=== PATIENT | female | born 1960 | race Caucasian/White ===

== ENCOUNTER 2017-11-30 14:05 | Emergency (ER) | payer OTHER ==
--- NOTE | 2017-11-30 15:57 | RAD REPORT ---
EXAM DESCRIPTION: CT - Soft Tissue Neck W/Contr - 11/30/2017 3:38 pm CLINICAL HISTORY: Recent tooth extraction, right-sided pain and swelling, suspected abscess, fever a nd chills TECHNIQUE: During dynamic enhancement using 100 milliliters nonionic IV contrast, axial 5 millimeter thick images of the neck were obtained. All CT scans are performed using dose optimization technique as appropriate and may include automated exposure control or mA/KV adjustment according to patient size. FINDINGS: In the right submandibular region and lateral to the mandible there is a 4.[address] abscess. Edema and stranding present in the surrounding fatty tissues. The right submandibular gl and is not clearly distinguishable. Patient has a very small or absent left submandibular gland. Bila teral parotid glands and thyroid gland tissue unremarkable. No mandible bone destructive process seen. Condyles are normally positioned. There are 2 in the cavit ies on the right. It is uncertain which I represents the most recent extraction. No bone destruction to suspect osteomyelitis. There is a congestion and edema pattern along the inner table of the mandible but no additional drain able fluid collections seen. No pharyngeal mass. No tonsillar or tongue base abnormality. Vocal cords are unremarkable. IMPRESSION: A 4.5 x 3.0 centimeter sized abscess is present in the region of the right submandibular gland. This is present at the inferior and lateral margin of the mandible. No acute or destructive bone process of the mandible.
[2017-11-30 16:02] LABS: Absolute Lymphocytes (CBC) 1.3 K/uL (0.7-4.9); Absolute Neutrophil 8.3 K/uL (1.8-8.0); Basophils % 0.6 % (0-1.3); Eosinophils % 0.8 % (0-4.4); Hematocrit 42.6 % (36.0-45.0); Lymphocytes % 11.7 % (15.3-44.8); MCH 29.6 pg (27.0-35.0); MCV 88.2 fL (80-100); Monocytes % 9.4 % (3.3-12.3); RBC Red Blood Cell Count 4.83 M/uL (3.86-4.86)
[2017-11-30 16:06] LABS: Potassium 3.7 mmol/L (3.5-5.1)
[2017-11-30] MEDS ORDERED: FENTANYL CITR 100 MCG/2 ML ONE (16:08)
[2017-11-30] MEDS ORDERED: NA CHLORIDE 0.9% 1,000 ML ONE (16:09)
[2017-11-30] MEDS ORDERED: VANCOMYCIN 1 GM/250 ML BAG ONE (16:09)
[2017-11-30] MEDS ORDERED: ONDANSETRON 4 MG/2 ML VIAL ONE (16:09)
[2017-11-30] MEDS ORDERED: PIPER/TAZO/NS 3.375gm 3.375 GM/100 ML BAG ONE (16:09)
--- NOTE | 2017-11-30 16:29 | EDPHYS ---
Physician Documentation [facility] Name: Terrance Lange Age: 57 yrs Sex: Female : 1960 Arrival Date: 11/30/2017 Time: 14:08 Bed 25 Private MD: None, None ED Physician Jamey Lewis HPI: 11/30 15:18 This 57 yrs old Female presents to ER via Ambulatory with complaints of jr8 Abscess. 15:18 The patient presents with an abscess of the face. Description: The affected area is jr8 moderate sized, well demarcated, erythematous, raised, tense, warm. Onset: The symptoms/episode began/occurred gradually, 1 week(s) ago. Possible cause(s): Recent dental infection. Associated signs and symptoms: Pertinent positives: fever. Severity of symptoms: At their worst the symptoms were moderate, in the emergency department the symptoms are unchanged. The patient has not experienced similar symptoms in the past. The patient has not recently seen a physician. came to ED for worsening of infection/abscess . Historical: - Allergies: 14:13 No Known Allergies; hj - Home Meds: 14:13 Nexium Oral [Active]; hj 15:14 tramadol 50 mg Oral tab 1 tab every 4 hours [Active]; tl3 - PMHx: 14:13 acid reflux; hj - PSHx: 14:13 eye; Hysterectomy; hj - Immunization history:: Adult Immunizations up to date, Last tetanus immunization: unknown. - Social history:: Smoking status: Patient/guardian denies using tobacco, Patient uses alcohol, occasionally. - Ebola Screening: : Patient negative for fever greater than or equal to 101.5 degrees Fahrenheit, and additional compatible Ebola Virus Disease symptoms Patient denies exposure to infectious person Patient denies travel to an Ebola-affected area in the 21 days before illness onset. ROS: 15:18 Eyes: Negative for injury, pain, redness, and discharge, ENT: Negative for injury, jr8 pain, and discharge, Neck: Negative for injury, pain, and swelling, Cardiovascular: Negative for chest pain, palpitations, and edema, Respiratory: Negative for shortness of breath, cough, wheezing, and pleuritic chest pain, Abdomen/GI: Negative for abdominal pain, nausea, vomiting, diarrhea, and constipation, Back: Negative for injury and pain, MS/Extremity: Negative for injury and deformity, Neuro: Negative for headache, weakness, numbness, tingling, and seizure. 15:18 Skin: Positive for abscess, of the right jaw. Exam: 15:18 Eyes: Pupils equal round and reactive to light, extra-ocular motions intact. Lids and jr8 lashes normal. Conjunctiva and sclera are non-icteric and not injected. Cornea within normal limits. Periorbital areas with no swelling, redness, or edema. ENT: Nares patent. No nasal discharge, no septal abnormalities noted. Tympanic membranes are normal and external auditory canals are clear. Oropharynx with no redness, swelling, or masses, exudates, or evidence of obstruction, uvula midline. Mucous membranes moist. Neck: Trachea midline, no thyromegaly or masses palpated, and no cervical lymphadenopathy. Supple, full range of motion without nuchal rigidity, or vertebral point tenderness. No Meningismus. Cardiovascular: Regular rate and rhythm with a normal S1 and S2. No gallops, murmurs, or rubs. Normal PMI, no JVD. No pulse deficits. Respiratory: Lungs have equal breath sounds bilaterally, clear to auscultation and percussion. No rales, rhonchi or wheezes noted. No increased work of breathing, no retractions or nasal flaring. Abdomen/GI: Soft, non-tender, with normal bowel sounds. No distension or tympany. No guarding or rebound. No evidence of tenderness throughout. Back: No spinal tenderness. No costovertebral tenderness. Full range of motion. MS/ Extremity: Pulses equal, no cyanosis. Neurovascular intact. Full, normal range of motion. Neuro: Awake and alert, GCS 15, oriented to person, place, time, and situation. Cranial nerves II-XII grossly intact. Motor strength 5/5 in all extremities. Sensory grossly intact. Cerebellar exam normal. Normal gait. 15:18 Head/face: Noted is Large erythematic, swollen, indurated, area approximately 7.5 cm in diameter noted to right jaw region of face. No draining present . Vital Signs: 14:14 BP 129 / 87; Pulse 96; Resp 18; Temp 98.6(O); Pulse Ox 95% on R/A; Weight 62.6 kg; hj Height 5 ft. 0 in. (152.40 cm); Pain 10/10; 15:56 BP 129 / 79; Pulse 74; Resp 18; Pulse Ox 98% ; tl3 16:24 BP 113 / 81; Pulse 88; Resp 18; Pulse Ox 99% ; tl3 16:50 Pain 8/10; tl3 17:53 BP 120 / 81; Pulse 93; Resp 18; Pulse Ox 99% on R/A; tl3 14:14 Body Mass Index 26.95 (62.60 kg, 152.40 cm) hj MDM: 15:05 Patient medically screened. jr8 16:12 Data reviewed: vital signs, nurses notes, lab test result(s), radiologic studies, CT jr8 scan. Data interpreted: Pulse oximetry: on room air is 98 %. Interpretation: normal. Counseling: I had a detailed discussion with the patient and/or guardian regarding: the historical points, exam findings, and any diagnostic results supporting the discharge/admit diagnosis, lab results, radiology results, the need to transfer to another facility, for higher level of care, [facility] does not immediately have the required specialist. ED course: Dr. Rendon at [facility] after discussing case with him stated that this is the other dentists problem and that this is not his problem. Was very rude and argumentative on the phone. He kept pushing that this dentist down here has his own OMFS. Explained to him that there is no OMFS or ENT available down here and that this patient needs inpatient IV antibiotics and I\T\D. He hung up at that time without finishing discussion. . 16:27 ED course: Dr. Dallas at [facility] accepted patient from ER to ER for further evaluation .[facility] 11/30 15:14 Order name: CBC with Diff; Complete Time: 16:15 jr8 11/30 15:14 Order name: Basic Metabolic Panel; Complete Time: 16:07 8 11/30 15:14 Order name: Blood Culture Adult (2) [facility] 11/30 15:35 Order name: Soft Tissue Neck W/Contr; Complete Time: 15:58 EDMS 11/30 15:14 Order name: IV; Complete Time: 16:23 Administered Medications: 16:22 Drug: fentaNYL (PF) 50 mcg Route: IVP; Infused Over: 2 mins; Site: left forearm; tl3 16:50 Follow up: Pain 8/10 Adult; Response: Pain is decreased tl3 16:22 Drug: Zofran 4 mg Route: IVP; Infused Over: 2 mins; Site: left forearm; tl3 16:50 Follow up: Response: No adverse reaction tl3 16:22 Drug: NS 0.9% 1000 ml Route: IV; Rate: 125 ml/hr; Site: left forearm; Delivery: Primary tl3 tubing; 17:52 Follow up: IV Status: Infusion continued upon transfer tl3 16:22 Drug: vancoMYCIN 1 grams Route: IVPB; Infused Over: 2 hrs; Site: left forearm; tl3 Delivery: Primary tubing; 17:52 Follow up: IV Status: Infusion continued upon transfer tl3 17:55 Follow up: IV Status: Infusion continued upon transfer; IV Intake: 200ml tl3 17:51 Drug: Zosyn 3.375 grams Route: IVPB; Infused Over: 60 mins; Site: left forearm; tl3 Delivery: Primary tubing; 17:52 Follow up: Response: Medication administered at discharge. tl3 17:51 Drug: fentaNYL (PF) 50 mcg Route: IVP; Site: left forearm; tl3 17:51 Follow up: Response: Medication administered at discharge. tl3 Disposition: 11/30/17 16:28 Transfer ordered to [facility]. Diagnosis is Submandibular Abscess (Failed outpatient therapy). - Reason for transfer: Higher level of care. - Accepting physician is Dr. Dallas. - Condition is Stable. - Problem is new. - Symptoms have worsened. Addendum: 12/07/2017 08:01 Co-signature as Attending Physician, Jamey Lewis MD I agree with the assessment and k dr plan of care. Signatures: Dispatcher [employer] [facility] Jamey Lewis MD MD [facility] Jaquan Manzanares PA PA jr8 aBshir Corrales RN RN hj Lowrey, Tammy, RN RN tl3 Corrections: (The following items were deleted from the chart) 11/30 15:35 15:14 Facial Bones W/ Con \T\ MPR+CT.RAD.BRZ ordered. [facility] 17:55 16:28 11/30/2017 16:28 Transfer ordered to [facility]. tl3 Diagnosis is Submandibular Abscess (Failed outpatient therapy). Reason for transfer: Higher level of care. Accepting physician is Dr. Dallas. Condition is Stable. Problem is new. Symptoms have worsened. jr8
--- NOTE | 2017-11-30 16:29 | ER ---
Nurse's Notes [facility] Name: Terrance Lange Age: 57 yrs Sex: Female : 1960 Arrival Date: 11/30/2017 Time: 14:08 Bed 25 Private MD: None, None Diagnosis: Submandibular Abscess (Failed outpatient therapy) Presentation: 11/30 14:10 Presenting complaint: Patient states: my dentist pulled the tooth last Monday, right hj after my tooth pulled the abscess on my R jaw is getting bigger and its getting worse; reports fever and chills; reports nausea and vomiting;. Transition of care: patient was not received from another setting of care. Onset of symptoms was November 30, 2017. Risk Assessment: Do you want to hurt yourself or someone else? Patient reports no desire to harm self or others. Initial Sepsis Screen: Does the patient meet any 2 criteria? No. Patient's initial sepsis screen is negative. Does the patient have a suspected source of infection? No. Patient's initial sepsis screen is negative. Care prior to arrival: None. 14:10 Method Of Arrival: Ambulatory 14:10 Acuity: VALERY 3 hj Triage Assessment: 14:13 General: Appears in no apparent distress. uncomfortable, Behavior is calm, cooperative, hj appropriate for age. Pain: Complains of pain in right jaw Pain currently is 10 out of 10 on a pain scale. Historical: - Allergies: 14:13 No Known Allergies; hj - Home Meds: 14:13 Nexium Oral [Active]; hj 15:14 tramadol 50 mg Oral tab 1 tab every 4 hours [Active]; tl3 - PMHx: 14:13 acid reflux; hj - PSHx: 14:13 eye; Hysterectomy; hj - Immunization history:: Adult Immunizations up to date, Last tetanus immunization: unknown. - Social history:: Smoking status: Patient/guardian denies using tobacco, Patient uses alcohol, occasionally. - Ebola Screening: : Patient negative for fever greater than or equal to 101.5 degrees Fahrenheit, and additional compatible Ebola Virus Disease symptoms Patient denies exposure to infectious person Patient denies travel to an Ebola-affected area in the 21 days before illness onset. Screenin:13 Abuse screen: Denies threats or abuse. Denies injuries from another. Nutritional hj screening: No deficits noted. Tuberculosis screening: No symptoms or risk factors identified. Fall Risk None identified. Assessment: 14:53 General: Appears distressed, uncomfortable, slender, well groomed, well developed, well tl3 nourished, Behavior is calm, cooperative, appropriate for age. Pain: Complains of pain in face and right jaw Pain currently is 10 out of 10 on a pain scale. Neuro: Level of Consciousness is awake, alert, obeys commands, Oriented to person, place, time, situation, Appropriate for age. Cardiovascular: Patient's skin is warm and dry. Respiratory: Airway is patent Respiratory effort is even, unlabored, Respiratory pattern is regular, symmetrical. GI: No signs and/or symptoms were reported involving the gastrointestinal system. : No signs and/or symptoms were reported regarding the genitourinary system. EENT: Oral mucosa is moist. pt had had facial swelling from what was thought to be a tooth abscess, two teeth were extracted on Monday, swelling continues, has finished Bactrim and is currently on Clindamycin area is red, hot and hard. 15:56 Reassessment: Patient appears in no apparent distress at this time. No changes from tl3 previously documented assessment. Patient and/or family updated on plan of care and expected duration. Pain level reassessed. Patient is alert, oriented x 3, equal unlabored respirations, skin warm/dry/pink. pt returned from CT. 16:48 Reassessment: report called to ER spoke with Daylin Ramirez RN. tl3 17:53 Reassessment: Patient appears in no apparent distress at this time. No changes from tl3 previously documented assessment. Patient and/or family updated on plan of care and expected duration. Pain level reassessed. Patient is alert, oriented x 3, equal unlabored respirations, skin warm/dry/pink. EMS here for transfer. Vital Signs: 14:14 BP 129 / 87; Pulse 96; Resp 18; Temp 98.6(O); Pulse Ox 95% on R/A; Weight 62.6 kg; hj Height 5 ft. 0 in. (152.40 cm); Pain 10/10; 15:56 BP 129 / 79; Pulse 74; Resp 18; Pulse Ox 98% ; tl3 16:24 BP 113 / 81; Pulse 88; Resp 18; Pulse Ox 99% ; tl3 16:50 Pain 8/10; tl3 17:53 BP 120 / 81; Pulse 93; Resp 18; Pulse Ox 99% on R/A; tl3 14:14 Body Mass Index 26.95 (62.60 kg, 152.40 cm) hj ED Course: 14:08 Patient arrived in ED. mr 14:08 None, None is Private Physician. mr 14:12 Triage completed. hj 14:13 Arm band placed on right wrist. hj 14:13 Patient has correct armband on for positive identification. Placed in gown. Bed in low hj position. Call light in reach. Side rails up X 1. 14:38 Jaquan Manzanares PA is PHCP. jr8 14:38 Jamey Lewis MD is Attending Physician. jr8 14:43 Raven Polanco, DENY is Primary Nurse. tl3 14:53 No provider procedures requiring assistance completed. Inserted saline lock: 20 gauge tl3 in right forearm, using aseptic technique. Blood collected. 15:[address] via stretcher. nj 15:38 CT completed. Patient tolerated procedure well. Patient moved back from CT. nj 15:38 Soft Tissue Neck W/Contr In Process Unspecified. EDMS 15:43 initiated transfer with Isabella at the [facility] transfer center. eb 15:58 connected the oral surgeon from [facility] with Jaquan ULRICH for patient transfer consultation. eb 15:59 First set of blood cultures drawn from L forearm Second set of blood cultures drawn LAC.tl3 16:00 [facility] oral surgeon Dr. Rendon declined transfer. Dr. Rendon says " this is an out eb patient problem". 16:07 initiated transfer with Claire at the [facility]. eb 16:46 \\[id number]\\[id number] Dr. Dallas accepted the patient/ \\T\\ [id number] administrative approval given by Claire Norman RN. Patient is to go to the ED. Report is to be called to [phone]. 17:53 Patient transferred, IV remains in place. tl3 Administered Medications: 16:22 Drug: fentaNYL (PF) 50 mcg Route: IVP; Infused Over: 2 mins; Site: left forearm; tl3 16:50 Follow up: Pain 8/10 Adult; Response: Pain is decreased tl3 16:22 Drug: Zofran 4 mg Route: IVP; Infused Over: 2 mins; Site: left forearm; tl3 16:50 Follow up: Response: No adverse reaction tl3 16:22 Drug: NS 0.9% 1000 ml Route: IV; Rate: 125 ml/hr; Site: left forearm; Delivery: Primary tl3 tubing; 17:52 Follow up: IV Status: Infusion continued upon transfer tl3 16:22 Drug: vancoMYCIN 1 grams Route: IVPB; Infused Over: 2 hrs; Site: left forearm; tl3 Delivery: Primary tubing; 17:52 Follow up: IV Status: Infusion continued upon transfer tl3 17:55 Follow up: IV Status: Infusion continued upon transfer; IV Intake: 200ml tl3 17:51 Drug: Zosyn 3.375 grams Route: IVPB; Infused Over: 60 mins; Site: left forearm; tl3 Delivery: Primary tubing; 17:52 Follow up: Response: Medication administered at discharge. tl3 17:51 Drug: fentaNYL (PF) 50 mcg Route: IVP; Site: left forearm; tl3 17:51 Follow up: Response: Medication administered at discharge. tl3 Intake: 17:55 IV: 200ml; Total: 200ml. tl3 Outcome: 16:28 ER care complete, transfer ordered by MD. monreal 17:55 Patient left the ED. tl3 Signatures: Dispatcher [employer] EDMS Carli Phipps Josh, PA PA jr8 Bashir Corrales, RN Andreas Lai Tammy, RN RN tl3 Agatha Turner Corrections: (The following items were deleted from the chart) 14:15 14:14 Pulse 96bpm; Resp 18bpm; Pulse Ox 95% RA; Temp 98.6F Oral; 62.6 kg; Height 5 ft. hj 0 in.; BMI: 26.9; Pain 10/10; hj
== END 2017-11-30 17:55 | disposition short-term general hospital (02) ==
LOC: ER 14:05
DX: L02.01 Cutaneous abscess of face (principal)
CPT/HCPCS: 36415; 70491; 80048; 85025; 87040; 96361; 96365; 96375; 99284; J2405; J2543; J3010; J3370; J7030

== ENCOUNTER 2023-10-06 19:54 | Emergency (ER) | payer OTHER ==
--- OUTSIDE RECORDS SUMMARY | 2023-10-06 20:01 | XMS REPORT | Continuity of Care Document ---
Author Name Unknown Address [address] [facility] [address] [place] [address] [facility] thconnect Address [address] [facility] [address] [place] [address] Care Team Providers Care Branch Controller Name Role Phone Maliha Eid Primary Care Physician [phone] Alivia Cao Attending Clinician Unavailable CHARISSE BRYANT Attending Clinician Unavailable Poppy_Lorenas Attending Clinician Unavailable TINO Attending Clinician Unavailable WATERS_S Attending Clinician Unavailable SCHAUBRODAYNE_L Attending Clinician Unavailable IHDE_G Attending Clinician Unavailable Yessy Henry Attending Clinician [phone] Poppy_Papmargaret Admitting Clinician Unavailable TINO Admitting Clinician Unavailable WATERS_S Admitting Clinician Unavailable SCHAUBRODAYNE_L Admitting Clinician Unavailable IHDE_G Admitting Clinician Unavailable Payers Payer Name Policy Type Policy Number Effective Date Expirati on Date Source [employer] [id number] 2012 00:00:00 [employer] Steffany CHAVEZ 2 [id number] 2012 00:00:00 [facility] [place]MEDICAID REPLACEMENT - HMO) [id number] 2012 00:00:00 [employer] (DARS) [id number] Problems Condition Name Condition Details Condition Category Status Onset Date Resolution Date Last Treatment Date Treating Clinician Comments Source 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, 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, 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 Specimen Problem Active 2020-05 00:00: 00 [facility] Hypertrigl yceridemia Hypertrigl yceridemia Problem Active 2019-05 00:00: 00 [facility] Legal blindness Legal Blindness Problem Active 2019-05 00:00: 00 [facility] Gastroesop hageal reflux disease Gastroesop hageal Reflux Disease Problem Active 2019-05 00:00: 00 [facility] Gastroesop hageal reflux disease Gastroesop hageal Reflux Disease Problem Active -17 00:00: 00 [facility] Hypothyroi dism Hypothyroi dism Problem Active - 00:00: 00 [facility] Urinary incontinen ce Urinary Incontinen ce Problem Active - 00:00: 00 [facility] Family history of cancer of colon Family History of Cancer of Colon Problem Active - 00:00: 00 [facility] Urge incontinen ce of urine Urge Incontinen ce of Urine Problem Active 2017-05 00:00: 00 [facility] Hormone replacemen t therapy Hormone Replacemen t Therapy Problem Active 2017-05 00:00: 00 [facility] 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 Atrophic vaginitis Atrophic Vaginitis Problem Active 11-08 00:00: 00 [facility] [id number] Glaucoma of right eye, unspecifie d glaucoma type Problem [facility] [id number] Age-relate d osteoporos is without current pathologic al fracture Problem [facility] [id number] Essential (primary) hypertensi on Problem [facility] [id number] Psoriasis Problem [facility] [id number] Hot flashes due to menopause Problem [facility] [id number] Hypothyroi dism, unspecifie d type Problem [facility] [id number] Gastroesop hageal reflux disease without esophagiti s Problem [facility] [id number] Mixed hyperlipid emia Problem [facility] Decreased hearing Decreased hearing Problem [facility] Social History Social Habit Start Date Stop Date Quantity Comments Source History of Tobacco Use [facility] Sex Assigned At [facility] Smoking Status Start Date Stop Date Source Never Smoker [facility] Medications Ordered Medication Name Filled Medication Name Start Date Stop Date Current Medication? Ordering Clinician Indication Dosage Frequency Signature (SIG) Comments Components Source Ciprofloxac in-dexAMETH asone 0.3-0.1 % Ciprofloxac in-dexAMETH asone 0.3-0.1 % - 00:00: 00 No BID Ciprofloxa madeline-dexAME THasone 0.3-0.1 % Amoxicillin -Pot Clavulanate 875-125 MG Amoxicillin -Pot Clavulanate 875-125 MG 08-06 00:00: 00 No 1{table t} BID Amoxicilli n-Pot Clavulanat e 875-125 MG Amoxicillin -Pot Clavulanate 875-125 MG Amoxicillin -Pot Clavulanate 875-125 MG 2024-0 4- 00:00: 00 No 1{table t} BID Amoxicilli n-Pot Clavulanat e 875-125 MG metFORMIN HCl 500 MG metFORMIN HCl 500 MG 4-0 -19 00:00: 00 No 1{table t_with_ a_meal} BID metFORMIN HCl 500 MG metFORMIN HCl 500 MG metFORMIN HCl 500 MG 4-0 3-19 00:00: 00 No 1{table t_with_ a_meal} BID metFORMIN HCl 500 MG metFORMIN HCl 500 MG metFORMIN HCl 500 MG 4-0 -19 00:00: 00 No 1{table t_with_ a_meal} BID metFORMIN HCl 500 MG metFORMIN HCl 500 MG metFORMIN HCl 500 MG 4-0 - 00:00: 00 No 1{table t_with_ a_meal} BID metFORMIN HCl 500 MG metFORMIN HCl 500 MG metFORMIN HCl 500 MG 2023-0 -19 00:00: 00 No 1{table t_with_ a_meal} BID metFORMIN HCl 500 MG metFORMIN HCl 500 MG metFORMIN HCl 500 MG 2023-0 - 00:00: 00 No 1{table t_with_ a_meal} BID metFORMIN HCl 500 MG Rosuvastati n Calcium 5 MG Rosuvastati n Calcium 5 MG 2022-1 218 00:00: 00 No 1{table t} QD Rosuvastat in Calcium 5 MG Rosuvastati n Calcium 5 MG Rosuvastati n Calcium 5 MG 2022-1 2-18 00:00: 00 No 1{table t} QD Rosuvastat in Calcium 5 MG Rosuvastati n Calcium 5 MG Rosuvastati n Calcium 5 MG 2022-1 2-18 00:00: 00 No 1{table t} QD Rosuvastat in Calcium 5 MG Rosuvastati n Calcium 5 MG Rosuvastati n Calcium 5 MG 2022-1 2-18 00:00: 00 No 1{table t} QD Rosuvastat in Calcium 5 MG Rosuvastati n Calcium 5 MG Rosuvastati n Calcium 5 MG 3-1 2-18 00:00: 00 No 1{table t} QD Rosuvastat in Calcium 5 MG Rosuvastati n Calcium 5 MG Rosuvastati n Calcium 5 MG 2022-1 2-18 00:00: 00 No 1{table t} QD Rosuvastat in Calcium 5 MG Rosuvastati n Calcium 5 MG Rosuvastati n Calcium 5 MG 2022-05-18 00:00: 00 No 1{table t} QD Rosuvastat in Calcium 5 MG Kenalog (Triamcinol one) Kenalog (Triamcinol one) 2022-0 4- 00:00: 00 No 40mg [facility] Kenalog (Triamcinol one) Kenalog (Triamcinol one) 0 - 00:00: 00 No 40mg [facility] Kenalog (Triamcinol one) Kenalog (Triamcinol one) 0 - 00:00: 00 No 40mg [facility] Kenalog (Triamcinol one) Kenalog (Triamcinol one) 0 - 00:00: 00 No 40mg [facility] Kenalog (Triamcinol one) Kenalog (Triamcinol one) 0 - 00:00: 00 No 40mg [facility] Kenalog (Triamcinol one) Kenalog (Triamcinol one) 0 - 00:00: 00 No 40mg [facility] Kenalog (Triamcinol one) Kenalog (Triamcinol one) 0 - 00:00: 00 No 40mg [facility] Kenalog (Triamcinol one) Kenalog (Triamcinol one) 0 - 00:00: 00 No 40mg [facility] Kenalog (Triamcinol one) Kenalog (Triamcinol one) 0 - 00:00: 00 No 40mg [facility] Kenalog (Triamcinol one) Kenalog (Triamcinol one) 2022-0 4- 00:00: 00 No 40mg [facility] Kenalog (Triamcinol one) Kenalog (Triamcinol one) 2023-0 4-19 00:00: 00 No 40mg [facility] Kenalog (Triamcinol one) Kenalog (Triamcinol one) 2022-0 4-19 00:00: 00 No 40mg [facility] Kenalog (Triamcinol one) Kenalog (Triamcinol one) 0 4-19 00:00: 00 No 40mg [facility] Kenalog (Triamcinol one) Kenalog (Triamcinol one) 0 4-19 00:00: 00 No 40mg [facility] Kenalog (Triamcinol one) Kenalog (Triamcinol one) 0 4-19 00:00: 00 No 40mg [facility] Kenalog (Triamcinol one) Kenalog (Triamcinol one) 2022-0 4-19 00:00: [address] [facility] Kenalog (Triamcinol one) Kenalog (Triamcinol one) 0 4-19 00:00: 00 No 40[facility] Kenalog (Triamcinol one) Kenalog (Triamcinol one) 0 4-19 00:00: 00 No 40mg [facility] Alendronate Sodium 70 MG Alendronate Sodium 70 MG 2022-0 2-16 00:00: 00 No Alendronat e Sodium 70 MG Alendronate Sodium 70 MG Alendronate Sodium 70 MG 2022-0 2-16 00:00: 00 No Alendronat e Sodium 70 MG Alendronate Sodium 70 MG Alendronate Sodium 70 MG 2022-0 2-16 00:00: 00 No Alendronat e Sodium 70 MG Alendronate Sodium 70 MG Alendronate Sodium 70 MG 2022-0 2-16 00:00: 00 No Alendronat e Sodium 70 MG Alendronate Sodium 70 MG Alendronate Sodium 70 MG 2022-0 2-16 00:00: 00 No Alendronat e Sodium 70 MG Venlafaxine HCl ER 37.5 MG Venlafaxine HCl ER 37.5 MG 2022-0 9-19 00:00: 00 No 1{capsu le_with _food} QD Venlafaxin e HCl ER 37.5 MG Venlafaxine HCl ER 37.5 MG Venlafaxine HCl ER 37.5 MG 2022-0 9-19 00:00: 00 No 1{capsu le_with _food} QD Venlafaxin e HCl ER 37.5 MG Ketorolac 15mg Ketorolac 15mg 2022-0 5-18 00:00: 00 No 60mg [facility] Ketorolac 15mg Ketorolac 15mg 2022-0 5-18 00:00: 00 No 60mg [facility] Ketorolac 15mg Ketorolac 15mg 2022-0 5-18 00:00: 00 No 60mg [facility] Ketorolac 15mg Ketorolac 15mg 2022-0 5-18 00:00: 00 No 60mg [facility] Ketorolac 15mg Ketorolac 15mg 2022-0 5-18 00:00: 00 No 60mg [facility] Ketorolac 15mg Ketorolac 15mg 2022-0 5-18 00:00: 00 No 60mg [facility] Ketorolac 15mg Ketorolac 15mg 2022-0 5-18 00:00: 00 No 60mg [facility] Ketorolac 15mg Ketorolac 15mg 2022-0 5-18 00:00: 00 No 60mg [facility] Ketorolac 15mg Ketorolac 15mg 2022-0 5-18 00:00: 00 No 60mg [facility] Ketorolac 15mg Ketorolac 15mg 2022-0 5-18 00:00: 00 No 60mg [facility] Ketorolac 15mg Ketorolac 15mg 2022-0 5-18 00:00: 00 No 60mg [facility] Ketorolac 15mg Ketorolac 15mg 2022-0 5-18 00:00: 00 No 60mg [facility] Ketorolac 15mg Ketorolac 15mg 2022-0 5-18 00:00: 00 No 60mg [facility] Ketorolac 15mg Ketorolac 15mg 2-0 5-18 00:00: 00 No 60mg [facility] Ketorolac 15mg Ketorolac 15mg 2022-0 5-18 00:00: 00 No 60mg [facility] Ketorolac 15mg Ketorolac 15mg 2022-0 5-18 00:00: 00 No 60mg [facility] Ketorolac 15mg Ketorolac 15mg 2022-0 5-18 00:00: 00 No 60mg [facility] Ketorolac 15mg Ketorolac 15mg 2-0 5-18 00:00: 00 No 60mg [facility] Ketorolac 15mg Ketorolac 15mg 2-0 5-18 00:00: 00 No 60mg [facility] Ketorolac 15mg Ketorolac 15mg 2-0 5-18 00:00: 00 No 60mg [facility] Ketorolac 15mg Ketorolac 15mg 2-0 5-18 00:00: 00 No 60mg [facility] Kenalog (Triamcinol one) Kenalog (Triamcinol one) 0 08-03 00:00: 00 No 40mg [facility] Kenalog (Triamcinol one) Kenalog (Triamcinol one) 2021-0 3 00:00: 00 No 40mg [facility] Kenalog (Triamcinol one) Kenalog (Triamcinol one) 2021-0 3 00:00: 00 No 40mg [facility] Kenalog (Triamcinol one) Kenalog (Triamcinol one) 0 08-03 00:00: 00 No 40mg [facility] Kenalog (Triamcinol one) Kenalog (Triamcinol one) 0 08-03 00:00: 00 No 40mg [facility] Kenalog (Triamcinol one) Kenalog (Triamcinol one) 0 08-03 00:00: 00 No 40mg [facility] Kenalog (Triamcinol one) Kenalog (Triamcinol one) 0 08-03 00:00: 00 No 40mg [facility] Kenalog (Triamcinol one) Kenalog (Triamcinol one) 0 08-03 00:00: 00 No 40mg [facility] Kenalog (Triamcinol one) Kenalog (Triamcinol one) 08-03 00:00: 00 No 40mg [facility] Kenalog (Triamcinol one) Kenalog (Triamcinol one) 0 08-03 00:00: 00 No 40mg [facility] Kenalog (Triamcinol one) Kenalog (Triamcinol one) 08-03 00:00: 00 No 40mg [facility] Kenalog (Triamcinol one) Kenalog (Triamcinol one) 08-03 00:00: 00 No 40mg [facility] Kenalog (Triamcinol one) Kenalog (Triamcinol one) 0 08-03 00:00: 00 No 40mg [facility] Kenalog (Triamcinol one) Kenalog (Triamcinol one) 0 08-03 00:00: 00 No 40mg [facility] Kenalog (Triamcinol one) Kenalog (Triamcinol one) 0 08-03 00:00: 00 No 40mg [facility] Kenalog (Triamcinol one) Kenalog (Triamcinol one) 0 08-03 00:00: 00 No 40mg [facility] Kenalog (Triamcinol one) Kenalog (Triamcinol one) 08-03 00:00: 00 No 40mg [facility] Kenalog (Triamcinol one) Kenalog (Triamcinol one) 08-03 00:00: 00 No 40mg [facility] Kenalog (Triamcinol one) Kenalog (Triamcinol one) 08-03 00:00: 00 No 40mg [facility] Kenalog (Triamcinol one) Kenalog (Triamcinol one) 08-03 00:00: 00 No 40mg [facility] Kenalog (Triamcinol one) Kenalog (Triamcinol one) 08-03 00:00: [address] [facility] Azithromyci n 250 MG Azithromyci n 250 MG 2-14 00:00: 00 06-26 00:00 :00 No QD Azithromyc in 250 MG cholecalcif kishan (Vitamin D-3) 25 MCG (1000 UT) tablet 9 14:09: 47 Yes 1 (one) time each day [facility] amlodipine 5 mg tablet TAKE 1 TABLET BY MOUTH EVERY DAY IN THE MORNING amlodipine 5 mg tablet TAKE 1 TABLET BY MOUTH EVERY DAY IN THE MORNING No amlodipine 5 mg tablet TAKE 1 TABLET BY MOUTH EVERY DAY IN THE MORNING [facility] clobetasol 0.05 % scalp solution APPLY TO AFFECTED AREAS OF SCALP DAILY FOR 1 WEEK THEN ON WEEKENDS ONLY clobetasol 0.05 % scalp solution APPLY TO AFFECTED AREAS OF SCALP DAILY FOR 1 WEEK THEN ON WEEKENDS ONLY No clobetasol 0.05 % scalp solution APPLY TO AFFECTED AREAS OF SCALP DAILY FOR 1 WEEK THEN ON WEEKENDS ONLY [facility] cyclosporin e 100 mg capsule TAKE 1 CAPSULE BY MOUTH TWICE A DAY cyclosporin e 100 mg capsule TAKE 1 CAPSULE BY MOUTH TWICE A DAY No cyclospori ne 100 mg capsule TAKE 1 CAPSULE BY MOUTH TWICE A DAY [facility] esomeprazol e magnesium 40 mg capsule,del ayed release TAKE 1 CAPSULE BY MOUTH EVERY DAY esomeprazol e magnesium 40 mg capsule,del ayed release TAKE 1 CAPSULE BY MOUTH EVERY DAY No esomeprazo le magnesium 40 mg capsule,de layed release TAKE 1 CAPSULE BY MOUTH EVERY DAY [facility] estradiol 2 mg tablet TAKE 1 TABLET BY MOUTH DAILY estradiol 2 mg tablet TAKE 1 TABLET BY MOUTH DAILY No estradiol 2 mg tablet TAKE 1 TABLET BY MOUTH DAILY [facility] fenofibrate nanocrystal lized 48 mg tablet TAKE 1 TABLET BY MOUTH EVERY DAY IN THE EVENING fenofibrate nanocrystal lized 48 mg tablet TAKE 1 TABLET BY MOUTH EVERY DAY IN THE EVENING No fenofibrat e nanocrysta llized 48 mg tablet TAKE 1 TABLET BY MOUTH EVERY DAY IN THE EVENING [facility] Flublok Quad (PF) 180 mcg (45 mcg x 4)/0.5 mL IM syringe Flublok Quad (PF) 180 mcg (45 mcg x 4)/0.5 mL IM syringe No Flublok Quad (PF) 180 mcg (45 mcg x 4)/0.5 mL IM syringe [facility] latanoprost 0.005 % eye drops PUT ONE DROP INTO RIGHT EYE AT BEDTIME latanoprost 0.005 % eye drops PUT ONE DROP INTO RIGHT EYE AT BEDTIME No latanopros t 0.005 % eye drops PUT ONE DROP INTO RIGHT EYE AT BEDTIME [facility] levothyroxi ne 25 mcg tablet TAKE 1 TABLET BY MOUTH 1 (ONE) TIME EACH DAY IN THE MORNING levothyroxi ne 25 mcg tablet TAKE 1 TABLET BY MOUTH 1 (ONE) TIME EACH DAY IN THE MORNING No levothyrox ine 25 mcg tablet TAKE 1 TABLET BY MOUTH 1 (ONE) TIME EACH DAY IN THE MORNING [facility] Vitamin D3 Vitamin D3 No Vitamin D3 [facility] amlodipine 5 mg tablet TAKE 1 TABLET BY MOUTH EVERY DAY IN THE MORNING amlodipine 5 mg tablet TAKE 1 TABLET BY MOUTH EVERY DAY IN THE MORNING No amlodipine 5 mg tablet TAKE 1 TABLET BY MOUTH EVERY DAY IN THE MORNING [facility] clobetasol 0.05 % scalp solution APPLY TO AFFECTED AREAS OF SCALP DAILY FOR 1 WEEK THEN ON WEEKENDS ONLY clobetasol 0.05 % scalp solution APPLY TO AFFECTED AREAS OF SCALP DAILY FOR 1 WEEK THEN ON WEEKENDS ONLY No clobetasol 0.05 % scalp solution APPLY TO AFFECTED AREAS OF SCALP DAILY FOR 1 WEEK THEN ON WEEKENDS ONLY [facility] clobetasol 0.05 % topical cream clobetasol 0.05 % topical cream No clobetasol 0.05 % topical cream [facility] cyclosporin e 100 mg capsule TAKE 1 CAPSULE BY MOUTH TWICE A DAY cyclosporin e 100 mg capsule TAKE 1 CAPSULE BY MOUTH TWICE A DAY No cyclospori ne 100 mg capsule TAKE 1 CAPSULE BY MOUTH TWICE A DAY [facility] esomeprazol e magnesium 40 mg capsule,del ayed release TAKE 1 CAPSULE BY MOUTH EVERY DAY esomeprazol e magnesium 40 mg capsule,del ayed release TAKE 1 CAPSULE BY MOUTH EVERY DAY No esomeprazo le magnesium 40 mg capsule,de layed release TAKE 1 CAPSULE BY MOUTH EVERY DAY [facility] estradiol 1 mg tablet TAKE 1 TABLET BY MOUTH EVERY DAY estradiol 1 mg tablet TAKE 1 TABLET BY MOUTH EVERY DAY No estradiol 1 mg tablet TAKE 1 TABLET BY MOUTH EVERY DAY [facility] fenofibrate nanocrystal lized 48 mg tablet TAKE 1 TABLET BY MOUTH EVERY DAY IN THE EVENING fenofibrate nanocrystal lized 48 mg tablet TAKE 1 TABLET BY MOUTH EVERY DAY IN THE EVENING No fenofibrat e nanocrysta llized 48 mg tablet TAKE 1 TABLET BY MOUTH EVERY DAY IN THE EVENING [facility] ketoconazol e 2 % shampoo ketoconazol e 2 % shampoo No ketoconazo le 2 % shampoo [facility] latanoprost 0.005 % eye drops INSTILL 1 DROP INTO RIGHT EYE AT BEDTIME latanoprost 0.005 % eye drops INSTILL 1 DROP INTO RIGHT EYE AT BEDTIME No latanopros t 0.005 % eye drops INSTILL 1 DROP INTO RIGHT EYE AT BEDTIME [facility] levothyroxi ne 25 mcg tablet TAKE 1 TABLET BY MOUTH 1 (ONE) TIME EACH DAY IN THE MORNING levothyroxi ne 25 mcg tablet TAKE 1 TABLET BY MOUTH 1 (ONE) TIME EACH DAY IN THE MORNING No levothyrox ine 25 mcg tablet TAKE 1 TABLET BY MOUTH 1 (ONE) TIME EACH DAY IN THE MORNING [facility] neomycin 3.5 mg/g-polymy claire B 10,000 unit/g-dexa meth 0.1 % eye oint neomycin 3.5 mg/g-polymy claire B 10,000 unit/g-dexa meth 0.1 % eye oint No neomycin 3.5 mg/g-polym yxin B 10,000 unit/g-dex ameth 0.1 % eye oint [facility] triamcinolo ne acetonide 0.1 % topical ointment triamcinolo ne acetonide 0.1 % topical ointment No triamcinol one acetonide 0.1 % topical ointment [facility] alendronate 70 mg tablet TAKE 1 TABLET BY MOUTH 30 MINUTES BEFORE 1ST FOOD/BEVERA GE/MEDICINE OF DAY WITH PLAIN WATER WEEKLY alendronate 70 mg tablet TAKE 1 TABLET BY MOUTH 30 MINUTES BEFORE 1ST FOOD/BEVERA GE/MEDICINE OF DAY WITH PLAIN WATER WEEKLY No alendronat e 70 mg tablet TAKE 1 TABLET BY MOUTH 30 MINUTES BEFORE 1ST FOOD/BEVER AGE/MEDICI NE OF DAY WITH PLAIN WATER WEEKLY [facility] amlodipine 5 mg tablet TAKE 1 TABLET BY MOUTH EVERY DAY FOR 90 DAYS amlodipine 5 mg tablet TAKE 1 TABLET BY MOUTH EVERY DAY FOR 90 DAYS No amlodipine 5 mg tablet TAKE 1 TABLET BY MOUTH EVERY DAY FOR 90 DAYS [facility] esomeprazol e magnesium 40 mg capsule,del ayed release TAKE 1 CAPSULE BY MOUTH EVERY DAY FOR 90 DAYS esomeprazol e magnesium 40 mg capsule,del ayed release TAKE 1 CAPSULE BY MOUTH EVERY DAY FOR 90 DAYS No esomeprazo le magnesium 40 mg capsule,de layed release TAKE 1 CAPSULE BY MOUTH EVERY DAY FOR 90 DAYS [facility] estradiol 0.01% (0.1 mg/gram) vaginal cream insert one dose per vagina at HS 2-3 times per week estradiol 0.01% (0.1 mg/gram) vaginal cream insert one dose per vagina at HS 2-3 times per week No estradiol 0.01% (0.1 mg/gram) vaginal cream insert one dose per vagina at HS 2-3 times per week [facility] fluocinonid e 0.05 % topical solution APPLY TO SCALP 1-2 TIMES DAILY FOR 2 WEEKS. USE 2 WEEKS ON THEN 2 WEEKS OFF. fluocinonid e 0.05 % topical solution APPLY TO SCALP 1-2 TIMES DAILY FOR 2 WEEKS. USE 2 WEEKS ON THEN 2 WEEKS OFF. No fluocinoni de 0.05 % topical solution APPLY TO SCALP 1-2 TIMES DAILY FOR 2 WEEKS. USE 2 WEEKS ON THEN 2 WEEKS OFF. [facility] latanoprost 0.005 % eye drops INSTILL 1 DROP INTO RIGHT EYE EVERY NIGHT AT BED TIME latanoprost 0.005 % eye drops INSTILL 1 DROP INTO RIGHT EYE EVERY NIGHT AT BED TIME No latanopros t 0.005 % eye drops INSTILL 1 DROP INTO RIGHT EYE EVERY NIGHT AT BED TIME [facility] levothyroxi ne 25 mcg tablet TAKE 1 TABLET BY MOUTH EVERY DAY IN THE MORNING ON EMPTY STOMACH levothyroxi ne 25 mcg tablet TAKE 1 TABLET BY MOUTH EVERY DAY IN THE MORNING ON EMPTY STOMACH No levothyrox ine 25 mcg tablet TAKE 1 TABLET BY MOUTH EVERY DAY IN THE MORNING ON EMPTY STOMACH [facility] neomycin 3.5 mg/g-polymy claire B 10,000 unit/g-dexa meth 0.1 % eye oint LOCATION: LEFT EYE. APPLY 1/4 INCH TO INTO LEFT EYE NEEDED neomycin 3.5 mg/g-polymy claire B 10,000 unit/g-dexa meth 0.1 % eye oint LOCATION: LEFT EYE. APPLY 1/4 INCH TO INTO LEFT EYE NEEDED No neomycin 3.5 mg/g-polym yxin B 10,000 unit/g-dex ameth 0.1 % eye oint LOCATION: LEFT EYE. APPLY 1/4 INCH TO INTO LEFT EYE NEEDED [facility] rosuvastati n 5 mg tablet TAKE 1 TABLET BY MOUTH EVERY DAY FOR 90 DAYS rosuvastati n 5 mg tablet TAKE 1 TABLET BY MOUTH EVERY DAY FOR 90 DAYS No rosuvastat in 5 mg tablet TAKE 1 TABLET BY MOUTH EVERY DAY FOR 90 DAYS [facility] Skyrizi 150 mg/mL subcutaneou s pen injector INJECT ONE PEN (150 MG) UNDER THE SKIN AT WEEK FOUR Skyrizi 150 mg/mL subcutaneou s pen injector INJECT ONE PEN (150 MG) UNDER THE SKIN AT WEEK FOUR No Skyrizi 150 mg/mL subcutaneo us pen injector INJECT ONE PEN (150 MG) UNDER THE SKIN AT WEEK FOUR [facility] cycloSPORIN E 100 MG cycloSPORIN E 100 MG No cycloSPORI NE 100 MG Latanoprost -Timolol Maleate 0.005-0.5 % Latanoprost -Timolol Maleate 0.005-0.5 % No 1{drop_ into_af fected_ eye} QD Latanopros t-Timolol Maleate 0.005-0.5 % amLODIPine Besylate 5 MG amLODIPine Besylate 5 MG No 1{table t} QD amLODIPine Besylate 5 MG Clobetasol Propionate 0.05 % Clobetasol Propionate 0.05 % No Clobetasol Propionate 0.05 % Esomeprazol e Magnesium 40 MG Esomeprazol e Magnesium 40 MG No Esomeprazo le Magnesium 40 MG Fenofibrate 48 MG Fenofibrate 48 MG No 1{table t} QD Fenofibrat e 48 MG Estradiol 1 MG Estradiol 1 MG No Estradiol 1 MG Levothyroxi ne Sodium 25 MCG Levothyroxi ne Sodium 25 MCG No Levothyrox ine Sodium 25 MCG Naproxen 500 MG Naproxen 500 MG No Naproxen 500 MG tiZANidine HCl 2 MG tiZANidine HCl 2 MG No 1{table t_as_ne eded} tiZANidine HCl 2 MG Estradiol 1 MG Estradiol 1 MG No Estradiol 1 MG tiZANidine HCl 2 MG tiZANidine HCl 2 MG No 1{table t_as_ne eded} tiZANidine HCl 2 MG Fenofibrate 48 MG Fenofibrate 48 MG No 1{table t} QD Fenofibrat e 48 MG Clobetasol Propionate 0.05 % Clobetasol Propionate 0.05 % No Clobetasol Propionate 0.05 % amLODIPine Besylate 5 MG amLODIPine Besylate 5 MG No 1{table t} QD amLODIPine Besylate 5 MG Naproxen 500 MG Naproxen 500 MG No Naproxen 500 MG Esomeprazol e Magnesium 40 MG Esomeprazol e Magnesium 40 MG No Esomeprazo le Magnesium 40 MG Levothyroxi ne Sodium 25 MCG Levothyroxi ne Sodium 25 MCG No Levothyrox ine Sodium 25 MCG Latanoprost -Timolol Maleate 0.005-0.5 % Latanoprost -Timolol Maleate 0.005-0.5 % No 1{drop_ into_af fected_ eye} QD Latanopros t-Timolol Maleate 0.005-0.5 % cycloSPORIN E 100 MG cycloSPORIN E 100 MG No cycloSPORI NE 100 MG Latanoprost -Timolol Maleate 0.005-0.5 % Latanoprost -Timolol Maleate 0.005-0.5 % No 1{drop_ into_af fected_ eye} QD Latanopros t-Timolol Maleate 0.005-0.5 % amLODIPine Besylate 5 MG amLODIPine Besylate 5 MG No 1{table t} QD amLODIPine Besylate 5 MG Levothyroxi ne Sodium 25 MCG Levothyroxi ne Sodium 25 MCG No Levothyrox ine Sodium 25 MCG Naproxen 500 MG Naproxen 500 MG No Naproxen 500 MG cycloSPORIN E 100 MG cycloSPORIN E 100 MG No cycloSPORI NE 100 MG Fenofibrate 48 MG Fenofibrate 48 MG No 1{table t} QD Fenofibrat e 48 MG Esomeprazol e Magnesium 40 MG Esomeprazol e Magnesium 40 MG No 1{capsu le} QD Esomeprazo le Magnesium 40 MG tiZANidine HCl 2 MG tiZANidine HCl 2 MG No 1{table t_as_ne eded} tiZANidine HCl 2 MG Clobetasol Propionate 0.05 % Clobetasol Propionate 0.05 % No Clobetasol Propionate 0.05 % Levothyroxi ne Sodium 25 MCG Levothyroxi ne Sodium 25 MCG No QD Levothyrox ine Sodium 25 MCG Triamcinolo ne Acetonide 0.1 % Triamcinolo ne Acetonide 0.1 % No Triamcinol one Acetonide 0.1 % Fluconazole 200 MG Fluconazole 200 MG No Fluconazol e 200 MG Latanoprost -Timolol Maleate 0.005-0.5 % Latanoprost -Timolol Maleate 0.005-0.5 % No 1{drop_ into_af fected_ eye} QD Latanopros t-Timolol Maleate 0.005-0.5 % amLODIPine Besylate 5 MG amLODIPine Besylate 5 MG No 1{table t} QD amLODIPine Besylate 5 MG Esomeprazol e Magnesium 40 MG Esomeprazol e Magnesium 40 MG No 1{capsu le} QD Esomeprazo le Magnesium 40 MG Clotrimazol e 1 % Clotrimazol e 1 % No Clotrimazo le 1 % Levothyroxi ne Sodium 25 MCG Levothyroxi ne Sodium 25 MCG No QD Levothyrox ine Sodium 25 MCG Triamcinolo ne Acetonide 0.1 % Triamcinolo ne Acetonide 0.1 % No Triamcinol one Acetonide 0.1 % Fluconazole 200 MG Fluconazole 200 MG No Fluconazol e 200 MG Latanoprost -Timolol Maleate 0.005-0.5 % Latanoprost -Timolol Maleate 0.005-0.5 % No 1{drop_ into_af fected_ eye} QD Latanopros t-Timolol Maleate 0.005-0.5 % amLODIPine Besylate 5 MG amLODIPine Besylate 5 MG No 1{table t} QD amLODIPine Besylate 5 MG Esomeprazol e Magnesium 40 MG Esomeprazol e Magnesium 40 MG No 1{capsu le} QD Esomeprazo le Magnesium 40 MG Clotrimazol e 1 % Clotrimazol e 1 % No Clotrimazo le 1 % Fluconazole 200 MG Fluconazole 200 MG No Fluconazol e 200 MG amLODIPine Besylate 5 MG amLODIPine Besylate 5 MG No 1{table t} QD amLODIPine Besylate 5 MG Triamcinolo ne Acetonide 0.1 % Triamcinolo ne Acetonide 0.1 % No Triamcinol one Acetonide 0.1 % Latanoprost -Timolol Maleate 0.005-0.5 % Latanoprost -Timolol Maleate 0.005-0.5 % No 1{drop_ into_af fected_ eye} QD Latanopros t-Timolol Maleate 0.005-0.5 % Esomeprazol e Magnesium 40 MG Esomeprazol e Magnesium 40 MG No 1{capsu le} QD Esomeprazo le Magnesium 40 MG Levothyroxi ne Sodium 25 MCG Levothyroxi ne Sodium 25 MCG No QD Levothyrox ine Sodium 25 MCG Clotrimazol e 1 % Clotrimazol e 1 % No Clotrimazo le 1 % Fluconazole 200 MG Fluconazole 200 MG No Fluconazol e 200 MG amLODIPine Besylate 5 MG amLODIPine Besylate 5 MG No 1{table t} QD amLODIPine Besylate 5 MG Triamcinolo ne Acetonide 0.1 % Triamcinolo ne Acetonide 0.1 % No Triamcinol one Acetonide 0.1 % Latanoprost -Timolol Maleate 0.005-0.5 % Latanoprost -Timolol Maleate 0.005-0.5 % No 1{drop_ into_af fected_ eye} QD Latanopros t-Timolol Maleate 0.005-0.5 % Esomeprazol e Magnesium 40 MG Esomeprazol e Magnesium 40 MG No 1{capsu le} QD Esomeprazo le Magnesium 40 MG Levothyroxi ne Sodium 25 MCG Levothyroxi ne Sodium 25 MCG No QD Levothyrox ine Sodium 25 MCG Clotrimazol e 1 % Clotrimazol e 1 % No Clotrimazo le 1 % Fluconazole 200 MG Fluconazole 200 MG No Fluconazol e 200 MG amLODIPine Besylate 5 MG amLODIPine Besylate 5 MG No 1{table t} QD amLODIPine Besylate 5 MG Clotrimazol e 1 % Clotrimazol e 1 % No Clotrimazo le 1 % Esomeprazol e Magnesium 40 MG Esomeprazol e Magnesium 40 MG No 1{capsu le} QD Esomeprazo le Magnesium 40 MG Latanoprost -Timolol Maleate 0.005-0.5 % Latanoprost -Timolol Maleate 0.005-0.5 % No 1{drop_ into_af fected_ eye} QD Latanopros t-Timolol Maleate 0.005-0.5 % Levothyroxi ne Sodium 25 MCG Levothyroxi ne Sodium 25 MCG No QD Levothyrox ine Sodium 25 MCG Triamcinolo ne Acetonide 0.1 % Triamcinolo ne Acetonide 0.1 % No Triamcinol one Acetonide 0.1 % Esomeprazol e Magnesium 40 MG Esomeprazol e Magnesium 40 MG No 1{capsu le} QD Esomeprazo le Magnesium 40 MG Alendronate Sodium 70 MG Alendronate Sodium 70 MG No Alendronat e Sodium 70 MG amLODIPine Besylate 5 MG amLODIPine Besylate 5 MG No 1{table t} QD amLODIPine Besylate 5 MG Levothyroxi ne Sodium 25 MCG Levothyroxi ne Sodium 25 MCG No QD Levothyrox ine Sodium 25 MCG Latanoprost -Timolol Maleate 0.005-0.5 % Latanoprost -Timolol Maleate 0.005-0.5 % No 1{drop_ into_af fected_ eye} QD Latanopros t-Timolol Maleate 0.005-0.5 % Esomeprazol e Magnesium 40 MG Esomeprazol e Magnesium 40 MG No 1{capsu le} QD Esomeprazo le Magnesium 40 MG Alendronate Sodium 70 MG Alendronate Sodium 70 MG No Alendronat e Sodium 70 MG amLODIPine Besylate 5 MG amLODIPine Besylate 5 MG No 1{table t} QD amLODIPine Besylate 5 MG Levothyroxi ne Sodium 25 MCG Levothyroxi ne Sodium 25 MCG No QD Levothyrox ine Sodium 25 MCG Latanoprost -Timolol Maleate 0.005-0.5 % Latanoprost -Timolol Maleate 0.005-0.5 % No 1{drop_ into_af fected_ eye} QD Latanopros t-Timolol Maleate 0.005-0.5 % Levothyroxi ne Sodium 25 MCG Levothyroxi ne Sodium 25 MCG No Levothyrox ine Sodium 25 MCG Estradiol 1 MG Estradiol 1 MG No Estradiol 1 MG Esomeprazol e Magnesium 40 MG Esomeprazol e Magnesium 40 MG No 1{capsu le} QD Esomeprazo le Magnesium 40 MG Alendronate Sodium 70 MG Alendronate Sodium 70 MG No Alendronat e Sodium 70 MG Esomeprazol e Magnesium 40 MG Esomeprazol e Magnesium 40 MG No Esomeprazo le Magnesium 40 MG amLODIPine Besylate 5 MG amLODIPine Besylate 5 MG No 1{table t} QD amLODIPine Besylate 5 MG Levothyroxi ne Sodium 25 MCG Levothyroxi ne Sodium 25 MCG No QD Levothyrox ine Sodium 25 MCG Latanoprost -Timolol Maleate 0.005-0.5 % Latanoprost -Timolol Maleate 0.005-0.5 % No 1{drop_ into_af fected_ eye} QD Latanopros t-Timolol Maleate 0.005-0.5 % cycloSPORIN E 100 MG cycloSPORIN E 100 MG No cycloSPORI NE 100 MG Esomeprazol e Magnesium 40 MG Esomeprazol e Magnesium 40 MG No 1{capsu le} QD Esomeprazo le Magnesium 40 MG Alendronate Sodium 70 MG Alendronate Sodium 70 MG No Alendronat e Sodium 70 MG amLODIPine Besylate 5 MG amLODIPine Besylate 5 MG No 1{table t} QD amLODIPine Besylate 5 MG Levothyroxi ne Sodium 25 MCG Levothyroxi ne Sodium 25 MCG No QD Levothyrox ine Sodium 25 MCG Latanoprost -Timolol Maleate 0.005-0.5 % Latanoprost -Timolol Maleate 0.005-0.5 % No 1{drop_ into_af fected_ eye} QD Latanopros t-Timolol Maleate 0.005-0.5 % amLODIPine Besylate 5 MG amLODIPine Besylate 5 MG No 1{table t} QD amLODIPine Besylate 5 MG Esomeprazol e Magnesium 40 MG Esomeprazol e Magnesium 40 MG No 1{capsu le} QD Esomeprazo le Magnesium 40 MG Latanoprost -Timolol Maleate 0.005-0.5 % Latanoprost -Timolol Maleate 0.005-0.5 % No 1{drop_ into_af fected_ eye} QD Latanopros t-Timolol Maleate 0.005-0.5 % Alendronate Sodium 70 MG Alendronate Sodium 70 MG No Alendronat e Sodium 70 MG amLODIPine Besylate 5 MG amLODIPine Besylate 5 MG No 1{table t} QD amLODIPine Besylate 5 MG Levothyroxi ne Sodium 25 MCG Levothyroxi ne Sodium 25 MCG No QD Levothyrox ine Sodium 25 MCG Latanoprost -Timolol Maleate 0.005-0.5 % Latanoprost -Timolol Maleate 0.005-0.5 % No 1{drop_ into_af fected_ eye} QD Latanopros t-Timolol Maleate 0.005-0.5 % Fenofibrate 48 MG Fenofibrate 48 MG No 1{table t} QD Fenofibrat e 48 MG Clobetasol Propionate 0.05 % Clobetasol Propionate 0.05 % No Clobetasol Propionate 0.05 % Esomeprazol e Magnesium 40 MG Esomeprazol e Magnesium 40 MG No 1{capsu le} QD Esomeprazo le Magnesium 40 MG Alendronate Sodium 70 MG Alendronate Sodium 70 MG No Alendronat e Sodium 70 MG amLODIPine Besylate 5 MG amLODIPine Besylate 5 MG No 1{table t} QD amLODIPine Besylate 5 MG Levothyroxi ne Sodium 25 MCG Levothyroxi ne Sodium 25 MCG No QD Levothyrox ine Sodium 25 MCG Latanoprost -Timolol Maleate 0.005-0.5 % Latanoprost -Timolol Maleate 0.005-0.5 % No 1{drop_ into_af fected_ eye} QD Latanopros t-Timolol Maleate 0.005-0.5 % Esomeprazol e Magnesium 40 MG Esomeprazol e Magnesium 40 MG No 1{capsu le} QD Esomeprazo le Magnesium 40 MG Alendronate Sodium 70 MG Alendronate Sodium 70 MG No Alendronat e Sodium 70 MG amLODIPine Besylate 5 MG amLODIPine Besylate 5 MG No 1{table t} QD amLODIPine Besylate 5 MG Levothyroxi ne Sodium 25 MCG Levothyroxi ne Sodium 25 MCG No QD Levothyrox ine Sodium 25 MCG Latanoprost -Timolol Maleate 0.005-0.5 % Latanoprost -Timolol Maleate 0.005-0.5 % No 1{drop_ into_af fected_ eye} QD Latanopros t-Timolol Maleate 0.005-0.5 % Rosuvastati n Calcium 5 MG Rosuvastati n Calcium 5 MG No 1{table t} QD Rosuvastat in Calcium 5 MG amLODIPine Besylate 5 MG amLODIPine Besylate 5 MG No amLODIPine Besylate 5 MG Levothyroxi ne Sodium 25 MCG Levothyroxi ne Sodium 25 MCG No QD Levothyrox ine Sodium 25 MCG Esomeprazol e Magnesium 40 MG Esomeprazol e Magnesium 40 MG No 1{capsu le} QD Esomeprazo le Magnesium 40 MG Latanoprost -Timolol Maleate 0.005-0.5 % Latanoprost -Timolol Maleate 0.005-0.5 % No 1{drop_ into_af fected_ eye} QD Latanopros t-Timolol Maleate 0.005-0.5 % Alendronate Sodium 70 MG Alendronate Sodium 70 MG No Alendronat e Sodium 70 MG Fluconazole 200 MG Fluconazole 200 MG No 1{table t} Fluconazol e 200 MG Rosuvastati n Calcium 5 MG Rosuvastati n Calcium 5 MG No 1{table t} QD Rosuvastat in Calcium 5 MG amLODIPine Besylate 5 MG amLODIPine Besylate 5 MG No amLODIPine Besylate 5 MG Levothyroxi ne Sodium 25 MCG Levothyroxi ne Sodium 25 MCG No QD Levothyrox ine Sodium 25 MCG Esomeprazol e Magnesium 40 MG Esomeprazol e Magnesium 40 MG No 1{capsu le} QD Esomeprazo le Magnesium 40 MG Latanoprost -Timolol Maleate 0.005-0.5 % Latanoprost -Timolol Maleate 0.005-0.5 % No 1{drop_ into_af fected_ eye} QD Latanopros t-Timolol Maleate 0.005-0.5 % Alendronate Sodium 70 MG Alendronate Sodium 70 MG No Alendronat e Sodium 70 MG Fluconazole 200 MG Fluconazole 200 MG No 1{table t} Fluconazol e 200 MG Rosuvastati n Calcium 5 MG Rosuvastati n Calcium 5 MG No 1{table t} QD Rosuvastat in Calcium 5 MG amLODIPine Besylate 5 MG amLODIPine Besylate 5 MG No amLODIPine Besylate 5 MG Levothyroxi ne Sodium 25 MCG Levothyroxi ne Sodium 25 MCG No QD Levothyrox ine Sodium 25 MCG Esomeprazol e Magnesium 40 MG Esomeprazol e Magnesium 40 MG No 1{capsu le} QD Esomeprazo le Magnesium 40 MG Latanoprost -Timolol Maleate 0.005-0.5 % Latanoprost -Timolol Maleate 0.005-0.5 % No 1{drop_ into_af fected_ eye} QD Latanopros t-Timolol Maleate 0.005-0.5 % Alendronate Sodium 70 MG Alendronate Sodium 70 MG No Alendronat e Sodium 70 MG Fluconazole 200 MG Fluconazole 200 MG No 1{table t} Fluconazol e 200 MG Rosuvastati n Calcium 5 MG Rosuvastati n Calcium 5 MG No 1{table t} QD Rosuvastat in Calcium 5 MG amLODIPine Besylate 5 MG amLODIPine Besylate 5 MG No amLODIPine Besylate 5 MG Levothyroxi ne Sodium 25 MCG Levothyroxi ne Sodium 25 MCG No QD Levothyrox ine Sodium 25 MCG Esomeprazol e Magnesium 40 MG Esomeprazol e Magnesium 40 MG No 1{capsu le} QD Esomeprazo le Magnesium 40 MG Latanoprost -Timolol Maleate 0.005-0.5 % Latanoprost -Timolol Maleate 0.005-0.5 % No 1{drop_ into_af fected_ eye} QD Latanopros t-Timolol Maleate 0.005-0.5 % Alendronate Sodium 70 MG Alendronate Sodium 70 MG No Alendronat e Sodium 70 MG Fluconazole 200 MG Fluconazole 200 MG No 1{table t} Fluconazol e 200 MG Rosuvastati n Calcium 5 MG Rosuvastati n Calcium 5 MG No 1{table t} QD Rosuvastat in Calcium 5 MG Levothyroxi ne Sodium 25 MCG Levothyroxi ne Sodium 25 MCG No QD Levothyrox ine Sodium 25 MCG Alendronate Sodium 70 MG Alendronate Sodium 70 MG No Alendronat e Sodium 70 MG amLODIPine Besylate 5 MG amLODIPine Besylate 5 MG No 1{table t} QD amLODIPine Besylate 5 MG Esomeprazol e Magnesium 40 MG Esomeprazol e Magnesium 40 MG No 1{capsu le} QD Esomeprazo le Magnesium 40 MG Levothyroxi ne Sodium 25 MCG Levothyroxi ne Sodium 25 MCG No QD Levothyrox ine Sodium 25 MCG Esomeprazol e Magnesium 40 MG Esomeprazol e Magnesium 40 MG No 1{capsu le} QD Esomeprazo le Magnesium 40 MG Rosuvastati n Calcium 5 MG Rosuvastati n Calcium 5 MG No 1{table t} QD Rosuvastat in Calcium 5 MG amLODIPine Besylate 5 MG amLODIPine Besylate 5 MG No 1{table t} QD amLODIPine Besylate 5 MG Alendronate Sodium 70 MG Alendronate Sodium 70 MG No Alendronat e Sodium 70 MG Immunizations Ordered Immunization Name Filled Immunization Name Date Status Comments Source Flucelvax - multidose vial Flucelvax - multidose vial 2022-01-24 11:23:00 Completed [facility] Flucelvax - multidose vial Flucelvax - multidose vial 2022-01-24 11:23:00 Completed [facility] SARS-COV-2 (COVID-19) vaccine, UNSPECIFIED SARS-COV-2 (COVID-19) vaccine, UNSPECIFIED 2020-08-04 00:00:00 Completed [facility] SARS-COV-2 (COVID-19) vaccine, UNSPECIFIED SARS-COV-2 (COVID-19) vaccine, UNSPECIFIED 2020-07-06 00:00:00 Completed [facility] influenza, injectable, quadrivalent influenza, injectable, quadrivalent 2020-02-06 00:00:00 Completed [facility] Flucelvax - multidose vial Flucelvax - multidose vial Unknown Completed [facility] Adacel (Tdap) Adacel (Tdap) Unknown Completed [facility] Flucelvax - multidose vial Flucelvax - multidose vial Unknown Completed [facility] Adacel (Tdap) Adacel (Tdap) Unknown Completed [facility] Flucelvax - multidose vial Flucelvax - multidose vial Unknown Completed [facility] Adacel (Tdap) Adacel (Tdap) Unknown Completed [facility] Flucelvax - multidose vial Flucelvax - multidose vial Unknown Completed [facility] Adacel (Tdap) Adacel (Tdap) Unknown Completed [facility] Flucelvax - multidose vial Flucelvax - multidose vial Unknown Completed [facility] Adacel (Tdap) Adacel (Tdap) Unknown Completed [facility] Prevnar 20 (PCV20) Prevnar 20 (PCV20) Unknown Completed [facility] Fluarix (IIV4) - SDS - 0.5mL Fluarix (IIV4) - SDS - 0.5mL Unknown Completed [facility] Flucelvax (ccIIV4) - MDV - 0.5mL Flucelvax (ccIIV4) - MDV - 0.5mL Unknown Completed [facility] Adacel (Tdap) Adacel (Tdap) Unknown Completed [facility] Prevnar 20 (PCV20) Prevnar 20 (PCV20) Unknown Completed [facility] Fluarix (IIV4) - SDS - 0.5mL Fluarix (IIV4) - SDS - 0.5mL Unknown Completed [facility] Flucelvax (ccIIV4) - MDV - 0.5mL Flucelvax (ccIIV4) - MDV - 0.5mL Unknown Completed [facility] Adacel (Tdap) Adacel (Tdap) Unknown Completed [facility] Prevnar 20 (PCV20) Prevnar 20 (PCV20) Unknown Completed [facility] Fluarix (IIV4) - SDS - 0.5mL Fluarix (IIV4) - SDS - 0.5mL Unknown Completed [facility] Flucelvax (ccIIV4) - MDV - 0.5mL Flucelvax (ccIIV4) - MDV - 0.5mL Unknown Completed [facility] Adacel (Tdap) Adacel (Tdap) Unknown Completed [facility] Prevnar 20 (PCV20) Prevnar 20 (PCV20) Unknown Completed [facility] Fluarix (IIV4) - SDS - 0.5mL Fluarix (IIV4) - SDS - 0.5mL Unknown Completed [facility] Flucelvax (ccIIV4) - MDV - 0.5mL Flucelvax (ccIIV4) - MDV - 0.5mL Unknown Completed [facility] Adacel (Tdap) Adacel (Tdap) Unknown Completed [facility] Prevnar 20 (PCV20) Prevnar 20 (PCV20) Unknown Completed [facility] Fluarix (IIV4) - SDS - 0.5mL Fluarix (IIV4) - SDS - 0.5mL Unknown Completed [facility] Flucelvax (ccIIV4) - MDV - 0.5mL Flucelvax (ccIIV4) - MDV - 0.5mL Unknown Completed [facility] Adacel (Tdap) Adacel (Tdap) Unknown Completed [facility] Prevnar 20 (PCV20) Prevnar 20 (PCV20) Unknown Completed [facility] Fluarix (IIV4) - SDS - 0.5mL Fluarix (IIV4) - SDS - 0.5mL Unknown Completed [facility] Flucelvax (ccIIV4) - MDV - 0.5mL Flucelvax (ccIIV4) - MDV - 0.5mL Unknown Completed [facility] Adacel (Tdap) Adacel (Tdap) Unknown Completed [facility] Prevnar 20 (PCV20) Prevnar 20 (PCV20) Unknown Completed [facility] Fluarix (IIV4) - SDS - 0.5mL Fluarix (IIV4) - SDS - 0.5mL Unknown Completed [facility] Flucelvax (ccIIV4) - MDV - 0.5mL Flucelvax (ccIIV4) - MDV - 0.5mL Unknown Completed [facility] Adacel (Tdap) Adacel (Tdap) Unknown Completed [facility] Prevnar 20 (PCV20) Prevnar 20 (PCV20) Unknown Completed [facility] Fluarix (IIV4) - SDS - 0.5mL Fluarix (IIV4) - SDS - 0.5mL Unknown Completed [facility] Flucelvax (ccIIV4) - MDV - 0.5mL Flucelvax (ccIIV4) - MDV - 0.5mL Unknown Completed [facility] Adacel (Tdap) Adacel (Tdap) Unknown Completed [facility] Prevnar 20 (PCV20) Prevnar 20 (PCV20) Unknown Completed [facility] Fluarix (IIV4) - SDS - 0.5mL Fluarix (IIV4) - SDS - 0.5mL Unknown Completed [facility] Flucelvax (ccIIV4) - MDV - 0.5mL Flucelvax (ccIIV4) - MDV - 0.5mL Unknown Completed [facility] Adacel (Tdap) Adacel (Tdap) Unknown Completed [facility] Prevnar 20 (PCV20) Prevnar 20 (PCV20) Unknown Completed [facility] Fluarix (IIV4) - SDS - 0.5mL Fluarix (IIV4) - SDS - 0.5mL Unknown Completed [facility] Flucelvax (ccIIV4) - MDV - 0.5mL Flucelvax (ccIIV4) - MDV - 0.5mL Unknown Completed [facility] Adacel (Tdap) Adacel (Tdap) Unknown Completed [facility] Prevnar 20 (PCV20) Prevnar 20 (PCV20) Unknown Completed [facility] Fluarix (IIV4) - SDS - 0.5mL Fluarix (IIV4) - SDS - 0.5mL Unknown Completed [facility] Flucelvax (ccIIV4) - MDV - 0.5mL Flucelvax (ccIIV4) - MDV - 0.5mL Unknown Completed [facility] Adacel (Tdap) Adacel (Tdap) Unknown Completed [facility] Prevnar 20 (PCV20) Prevnar 20 (PCV20) Unknown Completed [facility] Fluarix (IIV4) - SDS - 0.5mL Fluarix (IIV4) - SDS - 0.5mL Unknown Completed [facility] Flucelvax (ccIIV4) - MDV - 0.5mL Flucelvax (ccIIV4) - MDV - 0.5mL Unknown Completed [facility] Adacel (Tdap) Adacel (Tdap) Unknown Completed [facility] Prevnar 20 (PCV20) Prevnar 20 (PCV20) Unknown Completed [facility] Fluarix (IIV4) - SDS - 0.5mL Fluarix (IIV4) - SDS - 0.5mL Unknown Completed [facility] Flucelvax (ccIIV4) - MDV - 0.5mL Flucelvax (ccIIV4) - MDV - 0.5mL Unknown Completed [facility] Adacel (Tdap) Adacel (Tdap) Unknown Completed [facility] Vital Signs Vital Name Observation Time Observation Value Comments S ource height 2023-08-07 14:20:00 60 [in_i] Commo n [facility] weight 2023-08-07 14:20:00 127.4 [lb_av] [facility] temperature 2023-08-07 14:20:00 97.2 [degF] Com mon [facility] bmi 2023-08-07 14:20:00 24.88 kg/m2 Comm on [facility] oximetry 2023-08-07 14:20:00 96 % Commo n [facility] respiratory rate 2023-08-07 14:20:00 16 /min [facility] blood pressure systolic 2023-08-07 14:20:00 134 mm[Hg] Common [facility] blood pressure diastolic 2023-08-07 14:20:00 82 mm[Hg] Common [facility] height 2023-07-25 13:00:00 60 [in_i] Commo n [facility] weight 2023-07-25 13:00:00 130.6 [lb_av] [facility] temperature 2023-07-25 13:00:00 97.7 [degF] Com mon [facility] bmi 2023-07-25 13:00:00 25.5 kg/m2 Commo n [facility] oximetry 2023-07-25 13:00:00 98 % Commo n [facility] respiratory rate 2023-07-25 13:00:00 17 /min [facility] blood pressure systolic 2023-07-25 13:00:00 117 mm[Hg] [facility] blood pressure diastolic 2023-07-25 13:00:00 64 mm[Hg] [facility] height 2023-07-25 13:00:00 60 [in_i] Commo n [facility] weight 2023-07-25 13:00:00 130.6 [lb_av] Co mmon [facility] temperature 2023-07-25 13:00:00 97.7 [degF] Com mon [facility] bmi 2023-07-25 13:00:00 25.5 kg/m2 Commo n [facility] oximetry 2023-07-25 13:00:00 98 % Commo n [facility] respiratory rate 2023-07-25 13:00:00 17 /min [facility] blood pressure systolic 2023-07-25 13:00:00 117 mm[Hg] [facility] blood pressure diastolic 2023-07-25 13:00:00 64 mm[Hg] [facility] BMI (Body Mass Index) 2023-07-20 00:00:00 25.2 kg/m2 [facility] BP Diastolic 2023-07-20 00:00:00 79 mm[Hg] [facility] BP Systolic 2023-07-20 00:00:00 120 mm[Hg] [facility] Body Weight 2023-07-20 00:00:00 128.8 [lb_av] [facility] Height 2023-07-20 00:00:00 60 [in_i] [facility] height 2023-04-24 11:00:00 60 [in_i] Commo n [facility] weight 2023-04-24 11:00:00 133.6 [lb_av] Co mmon [facility] temperature 2023-04-24 11:00:00 97.1 [degF] Com mon [facility] bmi 2023-04-24 11:00:00 26.09 kg/m2 Comm on [facility] oximetry 2023-04-24 11:00:00 98 % Commo n [facility] respiratory rate 2023-04-24 11:00:00 16 /min [facility] blood pressure systolic 2023-04-24 11:00:00 134 mm[Hg] Common [facility] blood pressure diastolic 2023-04-24 11:00:00 78 mm[Hg] Common [facility] height 2023-04-24 10:20:00 60 [in_i] Commo n [facility] weight 2023-04-24 10:20:00 133.6 [lb_av] [facility] m[facility] temperature 2023-04-24 10:20:00 97.1 [degF] Com mon [facility] bmi 2023-04-24 10:20:00 26.09 kg/m2 Comm on [facility] oximetry 2023-04-24 10:20:00 98 % Commo n [facility] respiratory rate 2023-04-24 10:20:00 16 /min [facility] blood pressure systolic 2023-04-24 10:20:00 134 mm[Hg] [facility] blood pressure diastolic 2023-04-24 10:20:00 78 mm[Hg] Common [facility] height 2023-03-06 08:00:00 60 [in_i] Commo n [facility] weight 2023-03-06 08:00:00 136 [lb_av] Comm on [facility] temperature 2023-03-06 08:00:00 96.5 [degF] Com mon [facility] bmi 2023-03-06 08:00:00 26.56 kg/m2 Comm on [facility] oximetry 2023-03-06 08:00:00 97 % Commo n [facility] respiratory rate 2023-03-06 08:00:00 16 /min [facility] blood pressure systolic 2023-03-06 08:00:00 138 mm[Hg] [facility] blood pressure diastolic 2023-03-06 08:00:00 81 mm[Hg] Common [facility] height 2022-11-23 10:20:00 60 [in_i] Commo n [facility] weight 2022-11-23 10:20:00 140.0 [lb_av] Co mmon [facility] temperature 2022-11-23 10:20:00 97.2 [degF] Com mon [facility] bmi 2022-11-23 10:20:00 27.34 kg/m2 Comm on [facility] oximetry 2022-11-23 10:20:00 99 % Commo n [facility] respiratory rate 2022-11-23 10:20:00 16 /min [facility] blood pressure systolic 2022-11-23 10:20:00 118 mm[Hg] Common [facility] blood pressure diastolic 2022-11-23 10:20:00 63 mm[Hg] Common [facility] height 2022-08-24 10:20:00 60 [in_i] Commo n [facility] weight 2022-08-24 10:20:00 139 [lb_av] Comm on [facility] temperature 2022-08-24 10:20:00 98.3 [degF] Com mon [facility] bmi 2022-08-24 10:20:00 27.14 kg/m2 Comm on [facility] oximetry 2022-08-24 10:20:00 97 % Commo n [facility] respiratory rate 2022-08-24 10:20:00 17 /min [facility] blood pressure systolic 2022-08-24 10:20:00 136 mm[Hg] [facility] blood pressure diastolic 2022-08-24 10:20:00 74 mm[Hg] Common [facility] height 2022-03-07 11:40:00 60 [in_i] Commo n [facility] weight 2022-03-07 11:40:00 140 [lb_av] Comm on [facility] bmi 2022-03-07 11:40:00 27.34 kg/m2 Comm on [facility] height 2022-01-24 11:00:00 60 [in_i] Commo n [facility] weight 2022-01-24 11:00:00 140 [lb_av] Comm on [facility] temperature 2022-01-24 11:00:00 98.4 [degF] Com mon [facility] bmi 2022-01-24 11:00:00 27.34 kg/m2 Comm on [facility] oximetry 2022-01-24 11:00:00 96 % Commo n [facility] respiratory rate 2022-01-24 11:00:00 16 /min [facility] blood pressure systolic 2022-01-24 11:00:00 130 mm[Hg] Common [facility] blood pressure diastolic 2022-01-24 11:00:00 82 mm[Hg] Common [facility] height 2021-11-02 11:00:00 60 [in_i] Commo n [facility] weight 2021-11-02 11:00:00 135 [lb_av] Comm on [facility] bmi 2021-11-02 11:00:00 26.36 kg/m2 Comm on [facility] height 2021-09-22 13:00:00 60 [in_i] Commo n [facility] weight 2021-09-22 13:00:00 137 [lb_av] Comm on [facility] temperature 2021-09-22 13:00:00 97.9 [degF] Com [facility] bmi 2021-09-22 13:00:00 26.75 kg/m2 Comm on [facility] oximetry 2021-09-22 13:00:00 98 % Commo n [facility] respiratory rate 2021-09-22 13:00:00 16 /min [facility] blood pressure systolic 2021-09-22 13:00:00 128 mm[Hg] Common [facility] blood pressure diastolic 2021-09-22 13:00:00 72 mm[Hg] Common [facility] height 2021-09-21 13:00:00 60 [in_i] Commo n [facility] weight 2021-09-21 13:00:00 137 [lb_av] Comm on [facility] temperature 2021-09-21 13:00:00 98.1 [degF] Com mon [facility] bmi 2021-09-21 13:00:00 26.75 kg/m2 Comm on [facility] oximetry 2021-09-21 13:00:00 97 % Commo n [facility] respiratory rate 2021-09-21 13:00:00 16 /min [facility] blood pressure systolic 2021-09-21 13:00:00 136 mm[Hg] Common [facility] blood pressure diastolic 2021-09-21 13:00:00 80 mm[Hg] Common [facility] height 2021-08-03 11:20:00 60 [in_i] Commo n [facility] weight 2021-08-03 11:20:00 141 [lb_av] Comm on [facility] temperature 2021-08-03 11:20:00 97.5 [degF] Com mon [facility] bmi 2021-08-03 11:20:00 27.53 kg/m2 Comm on [facility] oximetry 2021-08-03 11:20:00 97 % Commo n [facility] respiratory rate 2021-08-03 11:20:00 16 /min [facility] blood pressure systolic 2021-08-03 11:20:00 123 mm[Hg] Common [facility] blood pressure diastolic 2021-08-03 11:20:00 75 mm[Hg] Common [facility] height 2021-07-20 10:40:00 60 [in_i] Commo n [facility] weight 2021-07-20 10:40:00 140.6 [lb_av] Co mmon [facility] temperature 2021-07-20 10:40:00 97.3 [degF] Com mon [facility] bmi 2021-07-20 10:40:00 27.46 kg/m2 Comm on [facility] oximetry 2021-07-20 10:40:00 99 % Commo n [facility] respiratory rate 2021-07-20 10:40:00 16 /min [facility] blood pressure systolic 2021-07-20 10:40:00 132 mm[Hg] [facility] blood pressure diastolic 2021-07-20 10:40:00 83 mm[Hg] Common [facility] respiratory rate 2021-07-07 13:00:00 16 /min [facility] blood pressure systolic 2021-07-07 13:00:00 133 mm[Hg] Common [facility] blood pressure diastolic 2021-07-07 13:00:00 71 mm[Hg] Common [facility] height 2021-07-07 13:00:00 60 [in_i] Commo n [facility] weight 2021-07-07 13:00:00 138.4 [lb_av] Co mmon [facility] temperature 2021-07-07 13:00:00 98.2 [degF] Com mon [facility] bmi 2021-07-07 13:00:00 27.03 kg/m2 Comm on [facility] oximetry 2021-07-07 13:00:00 99 % Commo n [facility] BP Diastolic 2021-06-21 00:00:00 82 mm[Hg] [facility] Height 2021-06-21 00:00:00 60 [in_i] [facility] BMI (Body Mass Index) 2021-06-21 00:00:00 26.5 kg/m2 [facility] BP Systolic 2021-06-21 00:00:00 128 mm[Hg] [facility] Body Weight 2021-06-21 00:00:00 135.7 [lb_av] [facility] height 2021-05-28 08:20:00 60 [in_i] Commo n [facility] weight 2021-05-28 08:20:00 137.6 [lb_av] Co mmon [facility] temperature 2021-05-28 08:20:00 98.2 [degF] Com mon [facility] bmi 2021-05-28 08:20:00 26.87 kg/m2 Comm on [facility] oximetry 2021-05-28 08:20:00 97 % Commo n [facility] respiratory rate 2021-05-28 08:20:00 16 /min [facility] blood pressure systolic 2021-05-28 08:20:00 119 mm[Hg] Common [facility] blood pressure diastolic 2021-05-28 08:20:00 69 mm[Hg] Common [facility] BP Diastolic 2021-03-22 00:00:00 74 mm[Hg] [facility] Height 2021-03-22 00:00:00 60 [in_i] [facility] BMI (Body Mass Index) 2021-03-22 00:00:00 26 kg/m2 [facility] BP Systolic 2021-03-22 00:00:00 123 mm[Hg] [facility] Body Weight 2021-03-22 00:00:00 133.3 [lb_av] [facility] BP Diastolic 2020-10-13 00:00:00 74 mm[Hg] [facility] Height 2020-10-13 00:00:00 60 [in_i] [facility] BMI (Body Mass Index) 2020-10-13 00:00:00 25.8 kg/m2 [facility] BP Systolic 2020-10-13 00:00:00 126 mm[Hg] [facility] Body Weight 2020-10-13 00:00:00 132 [lb_av] [facility] BP Diastolic 2020-08-26 00:00:00 82 mm[Hg] [facility] Height 2020-08-26 00:00:00 60 [in_i] [facility] BMI (Body Mass Index) 2020-08-26 00:00:00 25.5 kg/m2 [facility] BP Systolic 2020-08-26 00:00:00 138 mm[Hg] [facility] Body Weight 2020-08-26 00:00:00 2086.4 [oz_av] [facility] BP Diastolic 2020-07-16 00:00:00 78 mm[Hg] [facility] Height 2020-07-16 00:00:00 60 [in_i] [facility] BMI (Body Mass Index) 2020-07-16 00:00:00 25.9 kg/m2 [facility] BP Systolic 2020-07-16 00:00:00 130 mm[Hg] [facility] Body Weight 2020-07-16 00:00:00 132.4 [lb_av] [facility] BP Diastolic 2020-05-26 00:00:00 86 mm[Hg] [facility] Height 2020-05-26 00:00:00 60 [in_i] [facility] BMI (Body Mass Index) 2020-05-26 00:00:00 27 kg/m2 [facility] BP Systolic 2020-05-26 00:00:00 136 mm[Hg] [facility] Body Weight 2020-05-26 00:00:00 138 [lb_av] [facility] BP Diastolic 2020-05-18 00:00:00 93 mm[Hg] [facility] Height 2020-05-18 00:00:00 60 [in_i] [facility] BMI (Body Mass Index) 2020-05-18 00:00:00 27 kg/m2 [facility] BP Systolic 2020-05-18 00:00:00 145 mm[Hg] [facility] Body Weight 2020-05-18 00:00:00 138.5 [lb_av] [facility] BP Diastolic 2019-05-17 00:00:00 90 mm[Hg] [facility] Height 2019-05-17 00:00:00 60 [in_i] [facility] BMI (Body Mass Index) 2019-05-17 00:00:00 27.6 kg/m2 [facility] BP Systolic 2019-05-17 00:00:00 132 mm[Hg] [facility] Body Weight 2019-05-17 00:00:00 141.4 [lb_av] [facility] BP Diastolic 2018-05-28 00:00:00 96 mm[Hg] [facility] Height 2018-05-28 00:00:00 60 [in_i] [facility] BMI (Body Mass Index) 2018-05-28 00:00:00 27.5 kg/m2 [facility] BP Systolic 2018-05-28 00:00:00 128 mm[Hg] [facility] Body Weight 2018-05-28 00:00:00 141 [lb_av] [facility] Procedures Procedure Date / Time Performed Performing Clinician Source MAMMO, screening, digital, bilateral 2021-06-21 00:00:00 [facility] MAMMO, screening, digital, bilateral 2021-03-22 00:00:00 [facility] Hysterectomy 1986-05-08 00:00:00 [facility] Section [facility] Partial Hysterectomy [facility] Procedure [facility] Plan of Care Planned Activity Planned Date Details Comments Source Diagnostic Test Pending 2023-07-20 00:00:00 urinalysis, dipstick [code = urinalysis, dipstick] [facility] Diagnostic Test Pending 2023-07-20 00:00:00 pap, LB + HR HPV [code = pap, LB + HR HPV] [facility] Instructions [facility] Instructions [facility] Encounters Start Date/Time End Date/Time Encounter Type Admission Type Attending Clinicians Care Facility Care Department Encounter ID Source 2023-07-24 14:11:01 Outpatient Nash Alivia [facility] [id number] [facility] 2023-06-12 15:20:01 Outpatient NashAlivia [facility] [id number] [facility] 2023-04-20 11:49:00 Outpatient Alivia Cao [facility] [id number] [facility] 2022-12-13 11:06:00 Outpatient Alivia Cao [facility] [id number] [facility] 2022-11-21 08:56:00 Outpatient Alivia Cao [facility] [id number] [facility] 2022-08-24 10:01:01 Outpatient Alivia Cao [facility] [id number] [facility] 2022-07-22 14:41:39 Outpatient ELCAMPO ELCAMPO [id number] [facility] 2022-06-15 13:38:00 Outpatient Alivia Cao STDALILALC ST[facility] [id number] [facility] 2022-03-07 10:18:01 Outpatient Alivia Cao [facility] [id number] [facility] 2022-03-03 11:32:01 Outpatient Alivia Cao STDAL[facility]ALC STL[facility] [id number] [facility] 2022-01-25 08:38:01 Outpatient Alivia Cao STLMLC ST[facility] [id number] [facility] 2021-09-23 09:48:15 Outpatient Alivia Cao STDALILALC ST[facility] [id number] [facility] 2021-07-16 10:17:02 Outpatient Alivia Cao STLMLC STL[facility] [id number] [facility] 2021-06-17 15:14:02 Outpatient Alivia Cao STLMLC ST[facility] [id number] [facility] 2021-06-02 14:38:29 Outpatient Alivia Cao STLMLC ST[facility] [id number] [facility] 2020-12-06 12:26:16 Outpatient CHARISSE BRYANT [facility] [id number] [facility] 2023-08-09 00:00:00 2023-08-09 00:00:00 (TEL) STLMLC STLMLC [id number] [facility] 2023-08-07 00:00:00 2023-08-07 00:00:00 OFFICE VISIT ESTAB PT LEVEL 3 STLMLC STLMLC [id number] [facility] 2023-07-26 00:00:00 2023-07-26 00:00:00 (TEL) STLMLC STLMLC [id number] [facility] 2023-07-25 00:00:00 2023-07-25 00:00:00 OFFICE VISIT ESTAB PT LEVEL 4 STLMLC STLMLC [id number] [facility] 2023-07-25 00:00:00 2023-07-25 00:00:00 INIT ANNUAL [facility] WELLNESS VISIT STLMLC STLMLC [id number] [facility] 2023-07-25 00:00:00 2023-07-25 00:00:00 (TEL) STLMLC STLMLC [id number] [facility] 2023-07-24 00:00:00 2023-07-24 00:00:00 [place] [id number] [facility] 2023-07-20 00:00:00 2023-07-20 00:00:00 Outpatient G_Pappas MMG [facility]G [id number] [facility] 2023-07-20 00:00:00 2023-07-20 00:00:00 Dayday Garza MD: [address] [place] [address], [address], [place] [address] , Ph. [phone] [facility] [place] [facility] [place] [facility] [id number] [facility] 2023-04-24 00:00:00 2023-04-24 00:00:00 OFFICE VISIT ESTAB PT LEVEL 4 STLMLC STLMLC [id number] [facility] 2023-04-24 00:00:00 2023-04-24 00:00:00 WELCOME TO MEDICARE PREV PHY EXAM STLMLC STLMLC [id number] [facility] 2023-04-13 00:00:00 2023-04-13 00:00:00 (TEL) STLMLC STLMLC [id number] [facility] 2023-04-10 00:00:00 2023-04-10 00:00:00 (TEL) STLMLC STLMLC [id number] [facility] 2023-03-21 00:00:00 2023-03-21 00:00:00 (TEL) STLMLC STLMLC [id number] [facility] 2023-03-06 00:00:00 2023-03-06 00:00:00 OFFICE VISIT ESTAB PT LEVEL 3 STLMLC STLMLC [id number] [facility] 2023-02-28 00:00:00 2023-02-28 00:00:00 (TEL) STLMLC STLMLC [id number] [facility] 2022-12-13 00:00:00 2022-12-13 00:00:00 [place] [id number] [facility] 2022-11-23 13:10:34 2022-11-23 13:10:34 Outpatient SFA SFA [id number] Jeremy Avila 2022-11-23 00:00:00 2022-11-23 00:00:00 OFFICE VISIT ESTAB PT LEVEL 4 STLMLC STLMLC [id number] [facility] 2022-08-24 00:00:00 2022-08-24 00:00:00 OFFICE VISIT ESTAB PT LEVEL 3 STLMLC STLMLC [id number] [facility] 2022-08-17 00:00:00 2022-08-17 00:00:00 (TEL) STLMLC STLMLC [id number] [facility] 2022-06-23 00:00:00 2022-06-23 00:00:00 OFFICE VISIT ESTAB PT LEVEL 4 STLMLC STLMLC [id number] [facility] 2022-06-22 00:00:00 2022-06-22 00:00:00 (TEL) STLMLC STLMLC [id number] [facility] 2022-03-07 00:00:00 2022-03-07 00:00:00 OFFICE VISIT EST PT LEVEL 3 STLMLC STLMLC [id number] [facility] 2022-01-24 00:00:00 2022-01-24 00:00:00 OFFICE VISIT ESTAB PT LEVEL 4 STLMLC STLMLC [id number] [facility] 2021-11-02 00:00:00 2021-11-02 00:00:00 OFFICE VISIT EST PT LEVEL 3 STLMLC STLMLC [id number] [facility] 2021-09-24 00:00:00 2021-09-24 00:00:00 (TEL) STLMLC STLMLC [id number] [facility] 2021-09-22 00:00:00 2021-09-22 00:00:00 OFFICE VISIT EST PT LEVEL 3 STLMLC STLMLC [id number] [facility] 2021-09-21 00:00:00 2021-09-21 00:00:00 OFFICE VISIT ESTAB PT LEVEL 2 STLMLC STLMLC [id number] [facility] 2021-08-03 00:00:00 2021-08-03 00:00:00 OFFICE VISIT EST PT LEVEL 3 STLMLC STLMLC [id number] [facility] 2021-07-20 00:00:00 2021-07-20 00:00:00 PREV VISIT EST AGE 40-64 STLMLC STLMLC [id number] [facility] 2021-07-09 11:04:00 2021-07-09 11:04:00 Outpatient [facility] [id number] [facility] 2021-07-08 01:58:00 2021-07-08 01:58:00 Outpatient [facility] [id number] [facility] 2021-07-07 12:31:00 2021-07-07 12:31:00 Outpatient [facility] [id number] [facility] 2021-07-07 00:00:00 2021-07-07 00:00:00 OFFICE VISIT EST PT LEVEL 3 [facility] [id number] [facility] 2021-06-21 00:00:00 2021-06-21 00:00:00 OL DIG E/M SVC 21+ MIN [facility] [id number] [facility] 2021-06-21 00:00:00 2021-06-21 00:00:00 Dayday Garza MD: [address] [place] [address] , Ph. [phone] G_Pappas [facility] [id number] [facility] 2021-05-28 00:00:00 2021-05-28 00:00:00 OFFICE VISIT NEW PT LEVEL 4 [facility] [id number] [facility] 2021-05-17 11:23:00 2021-05-17 11:23:00 Outpatient WATERS_S [facility] [id number] 2021-03-22 11:10:00 2021-03-22 11:10:00 Outpatient SCHAUBROECK _L [facility] [id number] 2021-03-22 00:00:00 2021-03-22 00:00:00 Dayday Garza MD: 600 [facility] [address] [place] [address] , Ph. [phone] G_Pappas [facility] [id number] [facility] 2021-01-25 11:37:00 2021-01-25 11:37:00 Outpatient [facility] [id number] [facility] 2021-01-08 08:25:17 2021-01-08 09:25:17 Office Visit CHARISSE BRYANT [facility] [id number] [id number] [facility] 2021-01-08 08:25:17 2021-01-08 09:25:17 Office Visit Charisse Bryant [facility] [id number] [id number] [facility] 2020-11-04 10:57:00 2020-11-04 10:57:00 Outpatient [facility] [id number] [facility] 2020-10-13 00:00:00 2020-10-13 00:00:00 Bonifacio Unger MD: [address] [place] [address], [place] [address] , Ph. [phone] IHDE_G [facility] [id number] [facility] 2020-09-30 10:32:00 2020-09-30 10:32:00 Outpatient [facility] [id number] [facility] 2020-09-29 11:05:00 2020-09-29 11:05:00 Outpatient IHDE_G MMG [facility] [id number] [facility] 2020-09-02 11:10:00 2020-09-02 11:10:00 Outpatient [facility] [id number] [facility] 2020-09-02 08:26:00 2020-09-02 08:26:00 Outpatient IHDE_G MMG [facility] [id number] [facility] 2020-08-26 11:44:00 2020-08-26 11:44:00 Outpatient SCHAUBROECK _L [facility] [id number] [facility] 2020-08-26 00:00:00 2020-08-26 00:00:00 Lucy RENZO Goodwin: [address] [place] [address], [address] [address] , Ph. [facility] [id number] [facility] 2020-08-26 00:00:00 2020-08-26 00:00:00 Outpatient [place] Yessy [facility] [id number] 2020-08-13 01:11:00 2020-08-13 01:11:00 Outpatient MICHOACANO _L [facility] [id number] [facility] 2020-08-04 06:00:00 2020-08-04 06:00:00 Outpatient [facility] [id number] [facility] 2020-07-27 07:16:00 2020-07-27 07:16:00 Outpatient [facility]ON[facility] [id number] [facility] 2020-07-16 00:00:00 2020-07-16 00:00:00 Bonifacio Unger MD: [address] [place] [address], [place] [address] , Ph. [phone] IHDE_G [facility] [id number] [facility] 2020-07-15 03:06:00 2020-07-15 03:06:00 Outpatient IHDE_G MMG [facility] [id number] [facility] 2020-07-01 09:54:00 2020-07-01 09:54:00 Outpatient IHDE_G MMG [facility] [id number] [facility] 2020-06-09 09:23:00 2020-06-09 09:23:00 Outpatient [facility]ON[facility] [id number] [facility] 2020-05-26 03:02:00 2020-05-26 03:02:00 Outpatient [facility]ON[facility] [id number] [facility] 2020-05-26 00:00:00 2020-05-26 00:00:00 Bonifacio Unger MD: [address] [facility] [address], [place] [address] , Ph. [phone] [facility] 118 [facility] 2020-05-22 11:38:00 2020-05-22 11:38:00 Outpatient G[facility]appas [facility] [id number] [facility] 2020-05-18 00:00:00 2020-05-18 00:00:00 Dayday Garza MD: [address] [facility] [address], [place] [address] , Ph. [phone] G_Pappas [facility] 110 [facility] 2020-05-13 11:31:00 2020-05-13 11:31:00 Outpatient SCHAUBROECK _L [facility] [id number] 2020-05-12 05:39:00 2020-05-12 05:39:00 Outpatient SCHAUBROECK _L [facility] [id number] [facility] 2020-04-08 12:23:00 2020-04-08 12:23:00 Outpatient SCHAUBROECK _L [facility] [id number] [facility] 2020-03-25 02:24:00 2020-03-25 02:24:00 Outpatient [facility] [id number] [facility] 2020-03-16 04:31:00 2020-03-16 04:31:00 Outpatient G_Pappas MM[facility] [id number] [facility] 2019-05-19 12:07:00 2019-05-19 12:07:00 Outpatient G_Pappas MMG [facility] [id number] [facility] 2019-05-17 00:00:00 2019-05-17 00:00:00 Rosibel Dnaiels, SHEILANP: [address] [address] , Ph. [phone] [facility] 011 [facility] 2018-11-22 12:41:00 2018-11-22 12:41:00 Outpatient G_Pappas MM[facility] [id number] [facility] 2018-05-28 00:00:00 2018-05-28 00:00:00 Rosibel Daniels, NP: [address] [place] [address] , Ph. [phone] [facility] [id number] 0121 [facility] Results Test Description Test Time Test Comments Results Result Co mments Source [facility]MP)2023-04-08 00:00:00* Test Item Value Reference Range Interpretation Comme nts ALBUMIN (test code = 1751-7) 4.4 g/dL See_Comment N [Automated [employer]] The system which generated this result transmitted reference range: 3.6-5.1 g/dL. The reference range was not used to interpret this result as normal/abnormal. ALBUMIN/GLOBULIN RATIO (test code = 1759-0) 1.5 (calc) See_Comment N [[employer]ated [employer]] The system which generated this result transmitted reference range: 1.0-2.5 (calc). The reference range was not used to interpret this result as normal/abnormal. ALKALINE PHOSPHATASE (test code = 6768-6) 63 U/L See_Comment N [Automated message] The system which generated this result transmitted reference range: 37-153 U/L. The reference range was not used to interpret this result as normal/abnormal. ALT (test code = 1742-6) 16 U/L See_Comment N [Automated messa ge] The system which generated this result transmitted reference range: 6-29 U/L. The reference range was not used to interpret this result as normal/abnormal. AST (test code = 1920-8) 12 U/L See_Comment N [Automated messa ge] The system which generated this result transmitted reference range: 10-35 U/L. The reference range was not used to interpret this result as normal/abnormal. BILIRUBIN, TOTAL (test code = 1974-) 0.5 mg/dL See_Comment N [Automated message] The system which generated this result transmitted reference range: 0.2-1.2 mg/dL. The reference range was not used to interpret this result as normal/abnormal. BUN/CREATININE RATIO (test code = 3097-3) 29 (calc) See_Comment H [Automated message] The system which generated this result transmitted reference range: 6-22 (calc). The reference range was not used to interpret this result as normal/abnormal. CALCIUM (test code = 84559-1) 9.9 mg/dL See_Comment N [Automated messa ge] The system which generated this result transmitted reference range: 8.6-10.4 mg/dL. The reference range was not used to interpret this result as normal/abnormal. CARBON DIOXIDE (test code = 2027-9) 26 mmol/L See_Comment N [Automated messa ge] The system which generated this result transmitted reference range: 20-32 mmol/L. The reference range was not used to interpret this result as normal/abnormal. CHLORIDE (test code = 2075-0) 102 mmol/L See_Comment N [Automated messa ge] The system which generated this result transmitted reference range: 98-110 mmol/L. The reference range was not used to interpret this result as normal/abnormal. CREATININE (test code = 2160-0) 0.95 mg/dL See_Comment N [Automated messa ge] The system which generated this result transmitted reference range: 0.50-1.05 mg/dL. The reference range was not used to interpret this result as normal/abnormal. GLOBULIN (test code = 74095-8) 3.0 g/dL (calc) See_Comment N [Automated message] The system which generated this result transmitted reference range: 1.9-3.7 g/dL (calc). The reference range was not used to interpret this result as normal/abnormal. GLUCOSE (test code = 2345-7) 116 mg/dL See_Comment H [Automated messa ge] The system which generated this result transmitted reference range: 65-99 mg/dL. The reference range was not used to interpret this result as normal/abnormal. POTASSIUM (test code = 2823-3) 4.4 mmol/L See_Comment N [Automated messa ge] The system which generated this result transmitted reference range: 3.5-5.3 mmol/L. The reference range was not used to interpret this result as normal/abnormal. PROTEIN, TOTAL (test code = 2885-2) 7.4 g/dL See_Comment N [Automated messa ge] The system which generated this result transmitted reference range: 6.1-8.1 g/dL. The reference range was not used to interpret this result as normal/abnormal. SODIUM (test code = 2951-2) 139 mmol/L See_Comment N [Automated messa ge] The system which generated this result transmitted reference range: 135-146 mmol/L. The reference range was not used to interpret this result as normal/abnormal. UREA NITROGEN (BUN) (test code = 3094-0) 28 mg/dL See_Comment H [Automated message] The system which generated this result transmitted reference range: 7-25 mg/dL. The reference range was not used to interpret this result as normal/abnormal. LIPID PANEL WITH REFLEX TO DIRECT [id number] 00:00:00* Test Item Value Reference Range Interpretation Comme nts CHOL/HDLC RATIO (test code = 9830-1) 3.0 (calc) See_Comment N [Automated messa ge] The system which generated this result transmitted reference range: <5.0 (calc). The reference range was not used to interpret this result as normal/abnormal. CHOLESTEROL, TOTAL (test code = 2093-3) 202 mg/dL See_Comment H [Automated message] The system which generated this result transmitted reference range: <200 mg/dL. The reference range was not used to interpret this result as normal/abnormal. HDL CHOLESTEROL (test code = 2085-9) 67 mg/dL See_Comment N [Automated messa ge] The system which generated this result transmitted reference range: > OR = 50 mg/dL. The reference range was not used to interpret this result as normal/abnormal. LDL-CHOLESTEROL (test code = 28420-2) 112 mg/dL (calc) H TRIGLYCERIDES (test code = 2571-8) 119 mg/dL See_Comment N [Automated messa ge] The system which generated this result transmitted reference range: <150 mg/dL. The reference range was not used to interpret this result as normal/abnormal. TSH W/REFLEX TO [id number] 00:00:00* Test Item Value Reference Range Interpretation Comme nts TSH W/REFLEX TO FT4 (test code = 3016-3) 1.55 mIU/L See_Comment N [Automated messa ge] The system which generated this result transmitted reference range: 0.40-4.50 mIU/L. The reference range was not used to interpret this result as normal/abnormal. CBC (INCLUDES DIFF/PLT)2023-04-08 00:00:00* Test Item Value Reference Range Interpretation Comme nts ABSOLUTE BASOPHILS (test code = 704-7) 52 cells/uL See_Comment N [Automated m essage] The system which generated this result transmitted reference range: 0-200 cells/uL. The reference range was not used to interpret this result as normal/abnormal. ABSOLUTE EOSINOPHILS (test code = 711-2) 168 cells/uL See_Comment N [Automated m essage] The system which generated this result transmitted reference range: 15-500 cells/uL. The reference range was not used to interpret this result as normal/abnormal. ABSOLUTE LYMPHOCYTES (test code = 731-0) 1728 cells/uL See_Comment N [Automated m essage] The system which generated this result transmitted reference range: 850-3900 cells/uL. The reference range was not used to interpret this result as normal/abnormal. ABSOLUTE MONOCYTES (test code = 742-7) 650 cells/uL See_Comment N [Automated m essage] The system which generated this result transmitted reference range: 200-950 cells/uL. The reference range was not used to interpret this result as normal/abnormal. ABSOLUTE NEUTROPHILS (test code = 751-8) 3202 cells/uL See_Comment N [Automated m essage] The system which generated this result transmitted reference range: 5007-7341 cells/uL. The reference range was not used to interpret this result as normal/abnormal. BASOPHILS (test code = 706-2) 0.9 % N EOSINOPHILS (test code = 713-8) 2.9 % N HEMATOCRIT (test code = 4544-3) 40.9 % See_Comment N [Automated messa ge] The system which generated this result transmitted reference range: 35.0-45.0 %. The reference range was not used to interpret this result as normal/abnormal. HEMOGLOBIN (test code = 718-7) 13.6 g/dL See_Comment N [Automated messa ge] The system which generated this result transmitted reference range: 11.7-15.5 g/dL. The reference range was not used to interpret this result as normal/abnormal. LYMPHOCYTES (test code = 736-9) 29.8 % N MCH (test code = 785-6) 29.2 pg See_Comment N [Automated messa ge] The system which generated this result transmitted reference range: 27.0-33.0 pg. The reference range was not used to interpret this result as normal/abnormal. MCHC (test code = 786-4) 33.3 g/dL See_Comment N [Automated messa ge] The system which generated this result transmitted reference range: 32.0-36.0 g/dL. The reference range was not used to interpret this result as normal/abnormal. MCV (test code = 787-2) 88.0 fL See_Comment N [Automated messa ge] The system which generated this result transmitted reference range: 80.0-100.0 fL. The reference range was not used to interpret this result as normal/abnormal. MONOCYTES (test code = 5905-5) 11.2 % N MPV (test code = 776-5) 10.7 fL See_Comment N [Automated messa ge] The system which generated this result transmitted reference range: 7.5-12.5 fL. The reference range was not used to interpret this result as normal/abnormal. NEUTROPHILS (test code = 770-8) 55.2 % N PLATELET COUNT (test code = 777-3) 366 Thousand/uL See_Comment N [Automated message] The system which generated this result transmitted reference range: 140-400 Thousand/uL. The reference range was not used to interpret this result as normal/abnormal. RDW (test code = 788-0) 14.0 % See_Comment N [Automated messa ge] The system which generated this result transmitted reference range: 11.0-15.0 %. The reference range was not used to interpret this result as normal/abnormal. RED BLOOD CELL COUNT (test code = 789-8) 4.65 Million/uL See_Comment N [Automated message] The system which generated this result transmitted reference range: 3.80-5.10 Million/uL. The reference range was not used to interpret this result as normal/abnormal. WHITE BLOOD CELL COUNT (test code = 6690-2) 5.8 Thousand/uL See_Comment N [Automated message] The system which generated this result transmitted reference range: 3.8-10.8 Thousand/uL. The reference range was not used to interpret this result as normal/abnormal. HEMOGLOBIN A1C WITH [id number] 00:00:00* Test Item Value Reference Range Interpretation Comme nts HEMOGLOBIN A1c (test code = 4548-4) 6.0 % of total Hgb See_Comment H [Automated message] The system which generated this result transmitted reference range: <5.7 % of total Hgb. The reference range was not used to interpret this result as normal/abnormal. MEAN PLASMA GLUCOSE (test code = 52875-1) 136 mg/dL (calc) COMPREHENSIVE METABOLIC PANEL(CMP)2022-11-10 00:00:00* Test Item Value Reference Range Interpretation Comme nts ALBUMIN (test code = 1751-7) 4.4 g/dL See_Comment N [Automated message] The system which generated this result transmitted reference range: 3.6-5.1 g/dL. The reference range was not used to interpret this result as normal/abnormal. ALBUMIN/GLOBULIN RATIO (test code = 1759-0) 1.4 (calc) See_Comment N [Automated message] The system which generated this result transmitted reference range: 1.0-2.5 (calc). The reference range was not used to interpret this result as normal/abnormal. ALKALINE PHOSPHATASE (test code = 6768-6) 60 U/L See_Comment N [Automated message] The system which generated this result transmitted reference range: 37-153 U/L. The reference range was not used to interpret this result as normal/abnormal. ALT (test code = 1742-6) 14 U/L See_Comment N [Automated message] The system which generated this result transmitted reference range: 6-29 U/L. The reference range was not used to interpret this result as normal/abnormal. AST (test code = 1920-8) 14 U/L See_Comment N [Automated message] The system which generated this result transmitted reference range: 10-35 U/L. The reference range was not used to interpret this result as normal/abnormal. BILIRUBIN, TOTAL (test code = 1975-2) 0.3 mg/dL See_Comment N [Automated message] The system which generated this result transmitted reference range: 0.2-1.2 mg/dL. The reference range was not used to interpret this result as normal/abnormal. BUN/CREATININE RATIO (test code = 3097-3) NOT APPLICABLE (calc) See_Comment [Automated message] The system which generated this result transmitted reference range: 6-22 (calc). The reference range was not used to interpret this result as normal/abnormal. CALCIUM (test code = 34710-7) 9.6 mg/dL See_Comment N [Automated message] The system which generated this result transmitted reference range: 8.6-10.4 mg/dL. The reference range was not used to interpret this result as normal/abnormal. CARBON DIOXIDE (test code = 2027-9) 27 mmol/L See_Comment N [Automated message] The system which generated this result transmitted reference range: 20-32 mmol/L. The reference range was not used to interpret this result as normal/abnormal. CHLORIDE (test code = 5-0) 103 mmol/L See_Comment N [Automated message] The system which generated this result transmitted reference range: 98-110 mmol/L. The reference range was not used to interpret this result as normal/abnormal. CREATININE (test code = 2160-0) 0.87 mg/dL See_Comment N [Automated message] The system which generated this result transmitted reference range: 0.50-1.05 mg/dL. The reference range was not used to interpret this result as normal/abnormal. GLOBULIN (test code = 40122-7) 3.2 g/dL (calc) See_Comment N [Automated message] The system which generated this result transmitted reference range: 1.9-3.7 g/dL (calc). The reference range was not used to interpret this result as normal/abnormal. GLUCOSE (test code = 2345-7) 111 mg/dL See_Comment H [Automated message] The system which generated this result transmitted reference range: 65-99 mg/dL. The reference range was not used to interpret this result as normal/abnormal. POTASSIUM (test code = 2823-3) 4.5 mmol/L See_Comment N [Automated message] The system which generated this result transmitted reference range: 3.5-5.3 mmol/L. The reference range was not used to interpret this result as normal/abnormal. PROTEIN, TOTAL (test code = 2885-2) 7.6 g/dL See_Comment N [Automated message] The system which generated this result transmitted reference range: 6.1-8.1 g/dL. The reference range was not used to interpret this result as normal/abnormal. SODIUM (test code = 2951-2) 138 mmol/L See_Comment N [Automated message] The system which generated this result transmitted reference range: 135-146 mmol/L. The reference range was not used to interpret this result as normal/abnormal. UREA NITROGEN (BUN) (test code = 3094-0) 24 mg/dL See_Comment N [Automated message] The system which generated this result transmitted reference range: 7-25 mg/dL. The reference range was not used to interpret this result as normal/abnormal. LIPID PANEL WITH REFLEX TO DIRECT [id number] 00:00:00* Test Item Value Reference Range Interpretation Comme nts CHOL/HDLC RATIO (test code = 9830-1) 2.7 (calc) See_Comment N [Automated messa ge] The system which generated this result transmitted reference range: <5.0 (calc). The reference range was not used to interpret this result as normal/abnormal. CHOLESTEROL, TOTAL (test code = 2093-3) 192 mg/dL See_Comment N [Automated message] The system which generated this result transmitted reference range: <200 mg/dL. The reference range was not used to interpret this result as normal/abnormal. HDL CHOLESTEROL (test code = 2085-9) 71 mg/dL See_Comment N [Automated messa ge] The system which generated this result transmitted reference range: > OR = 50 mg/dL. The reference range was not used to interpret this result as normal/abnormal. LDL-CHOLESTEROL (test code = 53173-7) 105 mg/dL (calc) H TRIGLYCERIDES (test code = 2571-8) 75 mg/dL See_Comment N [Automated messa ge] The system which generated this result transmitted reference range: <150 mg/dL. The reference range was not used to interpret this result as normal/abnormal. TSH W/REFLEX TO [id number] 00:00:00* Test Item Value Reference Range Interpretation Comme nts TSH W/REFLEX TO FT4 (test code = 3016-3) 1.67 mIU/L See_Comment N [Automated messa ge] The system which generated this result transmitted reference range: 0.40-4.50 mIU/L. The reference range was not used to interpret this result as normal/abnormal. CBC (INCLUDES DIFF/PLT)2022-11-10 00:00:00* Test Item Value Reference Range Interpretation Comme nts ABSOLUTE BASOPHILS (test code = 704-7) 60 cells/uL See_Comment N [Automated m essage] The system which generated this result transmitted reference range: 0-200 cells/uL. The reference range was not used to interpret this result as normal/abnormal. ABSOLUTE EOSINOPHILS (test code = 711-2) 188 cells/uL See_Comment N [Automated m essage] The system which generated this result transmitted reference range: 15-500 cells/uL. The reference range was not used to interpret this result as normal/abnormal. ABSOLUTE LYMPHOCYTES (test code = 731-0) 2153 cells/uL See_Comment N [Automated m essage] The system which generated this result transmitted reference range: 850-3900 cells/uL. The reference range was not used to interpret this result as normal/abnormal. ABSOLUTE MONOCYTES (test code = 742-7) 705 cells/uL See_Comment N [Automated m essage] The system which generated this result transmitted reference range: 200-950 cells/uL. The reference range was not used to interpret this result as normal/abnormal. ABSOLUTE NEUTROPHILS (test code = 751-8) 4395 cells/uL See_Comment N [Automated m essage] The system which generated this result transmitted reference range: 2713-4914 cells/uL. The reference range was not used to interpret this result as normal/abnormal. BASOPHILS (test code = 706-2) 0.8 % N EOSINOPHILS (test code = 713-8) 2.5 % N HEMATOCRIT (test code = 4544-3) 42.6 % See_Comment N [Automated messa ge] The system which generated this result transmitted reference range: 35.0-45.0 %. The reference range was not used to interpret this result as normal/abnormal. HEMOGLOBIN (test code = 718-7) 14.0 g/dL See_Comment N [Automated messa ge] The system which generated this result transmitted reference range: 11.7-15.5 g/dL. The reference range was not used to interpret this result as normal/abnormal. LYMPHOCYTES (test code = 736-9) 28.7 % N MCH (test code = 785-6) 29.0 pg See_Comment N [Automated messa ge] The system which generated this result transmitted reference range: 27.0-33.0 pg. The reference range was not used to interpret this result as normal/abnormal. MCHC (test code = 786-4) 32.9 g/dL See_Comment N [Automated messa ge] The system which generated this result transmitted reference range: 32.0-36.0 g/dL. The reference range was not used to interpret this result as normal/abnormal. MCV (test code = 787-2) 88.2 fL See_Comment N [Automated messa ge] The system which generated this result transmitted reference range: 80.0-100.0 fL. The reference range was not used to interpret this result as normal/abnormal. MONOCYTES (test code = 5905-5) 9.4 % N MPV (test code = 776-5) 10.9 fL See_Comment N [Automated messa ge] The system which generated this result transmitted reference range: 7.5-12.5 fL. The reference range was not used to interpret this result as normal/abnormal. NEUTROPHILS (test code = 770-8) 58.6 % N PLATELET COUNT (test code = 777-3) 362 Thousand/uL See_Comment N [Automated message] The system which generated this result transmitted reference range: 140-400 Thousand/uL. The reference range was not used to interpret this result as normal/abnormal. RDW (test code = 788-0) 14.1 % See_Comment N [Automated [employer]] The system which generated this result transmitted reference range: 11.0-15.0 %. The reference range was not used to interpret this result as normal/abnormal. RED BLOOD CELL COUNT (test code = 789-8) 4.83 Million/uL See_Comment N [Automated message] The system which generated this result transmitted reference range: 3.80-5.10 Million/uL. The reference range was not used to interpret this result as normal/abnormal. WHITE BLOOD CELL COUNT (test code = 6690-2) 7.5 Thousand/uL See_Comment N [Automated message] The system which generated this result transmitted reference range: 3.8-10.8 Thousand/uL. The reference range was not used to interpret this result as normal/abnormal. Urinalysis macro (dipstick) panel - [id number] 13:36:07* Test Item Value Reference Range Interpretation Comme nts Leukocytes (test code = Leukocytes) Negative Nitrite (test code = Nitrite) negative Urobilinogen (test code = Urobilinogen) 2 Protein (test code = Protein) Negative pH (test code = pH) 5.5 Blood (test code = Blood) Negative Specific [place] (test code = Specific [place]) 1.025 Ketone (test code = Ketone) Negative Bilirubin (test code = Bilirubin) Negative Glucose (test code = Glucose) Negative Appearance (test code = Appearance) Clear Color (test code = Color) [facility] [id number] 09:29:35* Test Item Value Reference Range Interpretation Comme nts Leukocytes (test code = Leukocytes) Trace Nitrite (test code = Nitrite) negative Urobilinogen (test code = Urobilinogen) .2 Protein (test code = Protein) Negative pH (test code = pH) 7.0 Blood (test code = Blood) Negative Specific [place] (test code = Specific [place]) 1.010 Ketone (test code = Ketone) Negative Bilirubin (test code = Bilirubin) Negative Glucose (test code = Glucose) Negative Appearance (test code = Appearance) Clear Color (test code = Color) [facility] - [id number] 10:30:06* Test Item Value Reference Range Interpretation Comme nts Leukocytes (test code = Leukocytes) Trace Nitrite (test code = Nitrite) negative Urobilinogen (test code = Urobilinogen) 8 Protein (test code = Protein) Negative pH (test code = pH) 6.5 Blood (test code = Blood) Negative Specific [place] (test code = Specific [place]) 1.025 Ketone (test code = Ketone) Negative Bilirubin (test code = Bilirubin) Negative Glucose (test code = Glucose) Negative Appearance (test code = Appearance) Clear Color (test code = Color) Yellow [facility] - [id number] 10:30:06* Test Item Value Reference Range Interpretation Comme nts Leukocytes (test code = Leukocytes) Trace Nitrite (test code = Nitrite) negative Urobilinogen (test code = Urobilinogen) 8 Protein (test code = Protein) Negative pH (test code = pH) 6.5 Blood (test code = Blood) Negative Specific [place] (test code = Specific [place]) 1.025 Ketone (test code = Ketone) Negative Bilirubin (test code = Bilirubin) Negative Glucose (test code = Glucose) Negative Appearance (test code = Appearance) Clear Color (test code = Color) Yellow [facility] - [id number] 08:47:19* Test Item Value Reference Range Interpretation Comme nts Leukocytes (test code = Leukocytes) Trace Nitrite (test code = Nitrite) negative Urobilinogen (test code = Urobilinogen) .2 Protein (test code = Protein) Negative pH (test code = pH) 7.0 Blood (test code = Blood) Negative Specific [place] (test code = Specific [place]) 1.015 Ketone (test code = Ketone) Negative Bilirubin (test code = Bilirubin) Negative Glucose (test code = Glucose) Negative Appearance (test code = Appearance) Clear Color (test code = Color) Yellow [facility]
[2023-10-06] MEDS ORDERED: TETRACAINE HCL 0.5% 4ML OPTH ONE (20:49)
[2023-10-06] MEDS ORDERED: CODEINE 30MG/APAP 300MG TAB ONE (20:55)
[2023-10-06] MEDS ORDERED: IBUPROFEN 400 MG TAB ONE (20:55)
--- NOTE | 2023-10-06 21:10 | ER ---
Nurse's Notes [facility] Name: Terrance Lange Age: 63 yrs Sex: Female : 1960 Arrival Date: 10/06/2023 Time: 19:54 Bed 16 Private MD: Diagnosis: Right eye acute angle-closure glaucoma, right eye painful vision loss Presentation: 10/05 20:12 Chief complaint: Patient states: right sided eye pain that started yesterday. as6 Coronavirus screen: At this time, the client does not indicate any symptoms associated with coronavirus-19. Ebola Screen: No symptoms or risks identified at this time. Initial Sepsis Screen: Does the patient meet any 2 criteria? No. Patient's initial sepsis screen is negative. Does the patient have a suspected source of infection? No. Patient's initial sepsis screen is negative. Risk Assessment: Do you want to hurt yourself or someone else? Patient reports no desire to harm self or others. Onset of symptoms was October 05, 2023. 20:12 Method Of Arrival: Ambulatory as6 20:12 Acuity: VALERY 3 as6 Triage Assessment: 20:18 General: Appears in no apparent distress. Behavior is calm, cooperative. Pain: as6 Complains of pain in right eye. Historical: - Allergies: 20:13 No Known Allergies; as6 - PMHx: 20:13 acid reflux; Hypertensive disorder; Diabetes mellitus; as6 - PSHx: 20:13 eye (acid reflux); Total abdominal hysterectomy; as6 - Immunization history:: Adult Immunizations not up to date. - Infectious Disease History:: Denies. - Social history:: Smoking status: Patient/guardian denies using tobacco. - Family history:: not pertinent. Screenin:[address] [facility] ED Fall Risk Assessment (Adult) History of falling in the last 3 months, lg3 including since admission No falls in past 3 months (0 pts) Confusion or Disorientation No (0 pts) Intoxicated or Sedated No (0 pts) Impaired Gait Yes (1 pt) Mobility Assist Device Used No (0 pt) Altered Elimination No (0 pt) Score/Fall Risk Level 0 - 2 = Low Risk Oriented to surroundings, Maintained a safe environment, Educated pt \T\ family on fall prevention, incl call for assistance when getting out of bed, Assessed \T\ reinforced patient's understanding of fall precautions. Abuse screen: Denies threats or abuse. Denies injuries from another. Nutritional screening: No deficits noted. Tuberculosis screening: No symptoms or risk factors identified. Assessment: 21:07 General: Appears in no apparent distress. comfortable, Behavior is calm, cooperative. lg3 Pain: Complains of pain in right eye Pain does not radiate. Neuro: No deficits noted. [place] Agitation-Sedation Scale (RASS): 0 - Alert and Calm Level of Consciousness is awake, alert, obeys commands, Oriented to person, place, time, situation. Cardiovascular: No deficits noted. Denies chest pain, shortness of breath, Capillary refill < 3 seconds Clubbing of nail beds is absent JVD is absent Patient's skin is warm and dry. Respiratory: No deficits noted. Airway is patent Respiratory effort is even, unlabored, Respiratory pattern is regular, symmetrical. GI: No deficits noted. No signs and/or symptoms were reported involving the gastrointestinal system. Abdomen is round non-distended. : No deficits noted. No signs and/or symptoms were reported regarding the genitourinary system. EENT: Eyes are tearing on right eye Sclera/Cornea are cloudy in right eye Reports blurred vision in right eye pain in right eye. Derm: No deficits noted. Skin is intact, is healthy with good turgor, Skin is dry, Skin is normal, Skin temperature is warm. Musculoskeletal: No deficits noted. No signs and/or symptoms reported regarding the musculoskeletal system. Circulation, motion, and sensation intact. Range of motion: intact in all extremities. 22:31 Reassessment: Patient appears in no apparent distress at this time. No changes from lg3 previously documented assessment. Patient and/or family updated on plan of care and expected duration. Pain level reassessed. Patient is alert, oriented x 3, equal unlabored respirations, skin warm/dry/pink. Vital Signs: 20:12 BP 140 / 79; Pulse 77; Resp 18 S; Temp 97.9(TE); Pulse Ox 100% on R/A; Weight 58.97 kg as6 (R); Height 5 ft. 0 in. (R); Pain 8/10; 22:32 BP 137 / 81; Pulse 74; Resp 17 S; Temp 97.6(O); Pulse Ox 100% on R/A; lg3 20:12 Body Mass Index 25.39 (58.97 kg, 152.4 cm) as6 20:12 Pain Scale: Adult as6 Kashif Coma Score: 21:44 Eye Response: spontaneous(4). Motor Response: obeys commands(6). Verbal Response: sp4 oriented(5). Total: 15. ED Course: 20:05 Patient arrived in ED. jj6 20:07 Bryant Youngblood MD is Attending Physician. sp4 20:13 Triage completed. as6 20:14 Arm band placed on. as6 21:07 Tayla Herrera RN is Primary Nurse. lg3 21:07 Patient has correct armband on for positive identification. Placed in gown. Bed in low lg3 position. Call light in reach. Side rails up X 1. Client placed on continuous cardiac and pulse oximetry monitoring. NIBP monitoring applied. Door closed. Noise minimized. Warm blanket given. Pillow given. Family accompanied patient. 21:16 [facility] Transfer Center called to initiate patient transfer, spoke with Feliciano. ty 21:22 Doc 2 Doc. ty 21:24 admin approval / Doctor acceptance given. ty 21:32 Face Sheet faxed to transfer center. ty 21:33 Inserted saline lock: 20 gauge in left antecubital area, using aseptic technique. Blood lg3 collected. 21:56 [facility] called for transport ETA 20 Mins. ty 22:33 No provider procedures requiring assistance completed. Patient transferred, IV remains lg3 in place. Administered Medications: 20:57 Drug: Tetracaine Ophthalmic Drops 0.5 % 1 drops Ophthalmic once {Note: administered by as6 provider .} Route: Ophthalmic; Site: right eye; 20:57 Drug: Acetaminophen-Codeine PO (300 mg-30 mg) 2 tabs PO once; RASS on ADMIN: Combtv4, as6 Very Agttd3, Agttd2, Rstlss1, AlertClm0, Drwsy-1, Lt Sdtn-2, Mod Sdtn-3, Dp Sdtn-4, UnArsble-5 Route: PO; 22:33 Follow up: Response: No adverse reaction lg3 20:57 Drug: Ibuprofen PO 800 mg PO once Route: PO; as6 22:33 Follow up: Response: No adverse reaction lg3 21:46 Drug: acetaZOLAMIDE PO 500 mg PO once Route: PO; lg3 22:32 Follow up: Response: No adverse reaction lg3 21:46 Drug: Mannitol IV 20% 60 grams 500 ml IV at calculated rate once; Administer over 30 to lg3 60 minutes Volume: 500 ml; Route: IV; Rate: calculated rate; Site: left antecubital; 22:33 Follow up: Response: No adverse reaction; IV Status: Completed infusion; IV Intake: lg3 500ml 21:46 Drug: NS 0.9% IV 1000 ml IV at 125 ml/hr continuous Route: IV; Rate: 125 ml/hr; Site: lg3 left antecubital; 22:32 Follow up: IV Status: Infusion continued upon transfer lg3 21:46 Drug: Ondansetron IVP 4 mg IVP once; over 2 minutes Route: IVP; Site: left antecubital; lg3 22:32 Follow up: Response: No adverse reaction lg3 Medication: 21:07 VIS not applicable for this client. lg3 Intake: 22:33 IV: 500ml; Total: 500ml. lg3 Outcome: 21:10 ER care complete, transfer ordered by sp4 22:33 Transferred by ground EMS to [facility], Transfer form lg3 completed. 22:33 Condition: stable 22:33 Instructed on the need for transfer, Demonstrated understanding of instructions, 22:34 Patient left the ED. lg3 Signatures: Tayla Herrera, RN RN lg3 Hiral Mckeon Ashby, RN RN as6 Bryant Youngblood MD MD sp4 Joni Carpenter
--- NOTE | 2023-10-06 21:11 | EDPHYS ---
Physician Documentation [facility] Name: Terrance Lange Age: 63 yrs Sex: Female : 1960 Arrival Date: 10/06/2023 Time: 19:54 Bed 16 Private MD: ED Physician Bryant Youngblood HPI: 10/05 20:07 This 63 yrs old Female presents to ER via Unassigned with complaints of sp4 Eye Swelling, Eye Pain, Loss Of Vision. 21:44 63-year-old female presents with acute onset moderate decreased vision in the right eye sp4 associated with right eye pain starting this morning. 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 Patient goes to Dr. Coe with ophthalmology in [facility] and she is on latanoprost eyedrops 0.005% every evening.. Historical: - Allergies: 20:13 No Known Allergies; as6 - PMHx: 20:13 acid reflux; Hypertensive disorder; Diabetes mellitus; as6 - PSHx: 20:13 eye (acid reflux); Total abdominal hysterectomy; as6 - Immunization history:: Adult Immunizations not up to date. - Infectious Disease History:: Denies. - Social history:: Smoking status: Patient/guardian denies using tobacco. - Family history:: not pertinent. ROS: 21:44 Constitutional: Negative for fever, chills, and weight loss, positive right eye pain, sp4 positive decreased vision in the right eye. 21:44 All other systems are negative, Exam: 21:44 Visual Acuity: Moderate to severe decreased vision in the right eye. Left artificial sp4 eye., 21:44 Constitutional: This is a well developed, well nourished patient who is awake, alert, and in no acute distress. Head/Face: Normocephalic, atraumatic. Eyes: Left eye is artificial. Right eye pupillary response is decreased, mid dilated pupil poorly reactive, moderate to severe decreased vision in the right eye able to discriminate light and dark able to discriminate shapes. Right eye pressure measurement is 38 measured with Nahun-Pen ENT: Nares patent. No nasal discharge, no septal abnormalities noted. Tympanic membranes are normal and external auditory canals are clear. Oropharynx with no redness, swelling, or masses, exudates, or evidence of obstruction, uvula midline. Mucous membranes moist. Neck: Trachea midline, no thyromegaly or masses palpated, and no cervical lymphadenopathy. Supple, full range of motion without nuchal rigidity, or vertebral point tenderness. Chest/axilla: Normal chest wall appearance and motion. Nontender with no deformity. No lesions are appreciated. Cardiovascular: Regular rate and rhythm with a normal S1 and S2. No gallops, murmurs, or rubs. Normal PMI, no JVD. No pulse deficits. Respiratory: Lungs have equal breath sounds bilaterally, clear to auscultation and percussion. No rales, rhonchi or wheezes noted. No increased work of breathing, no retractions or nasal flaring. Abdomen/GI: Soft, with normal bowel sounds. No distension or tympany. No guarding or rebound. No evidence of tenderness throughout. Back: No spinal tenderness. No costovertebral tenderness. Skin: Warm, dry with normal turgor. Normal color with no rashes, no lesions, and no evidence of cellulitis. MS/ Extremity: Pulses equal, no cyanosis. Neurovascular intact. Full, normal range of motion. Neuro: Awake and alert, GCS 15, oriented to person, place, time, and situation. Cranial nerves II-XII grossly intact. Motor strength 5/5 in all extremities. Sensory grossly intact. Psych: Awake, alert, with orientation to person, place and time. Behavior, mood, and affect are within normal limits Vital Signs: 20:12 BP 140 / 79; Pulse 77; Resp 18 S; Temp 97.9(TE); Pulse Ox 100% on R/A; Weight 58.97 kg as6 (R); Height 5 ft. 0 in. (R); Pain 8/10; 22:32 BP 137 / 81; Pulse 74; Resp 17 S; Temp 97.6(O); Pulse Ox 100% on R/A; lg3 20:12 Body Mass Index 25.39 (58.97 kg, 152.4 cm) as6 20:12 Pain Scale: Adult as6 Kashif Coma Score: 21:44 Eye Response: spontaneous(4). Motor Response: obeys commands(6). Verbal Response: sp4 oriented(5). Total: 15. MDM: 20:18 Patient medically screened. sp4 21:47 Differential diagnosis: Corneal abrasion of Corneal ulcer of Foreign body in Acute sp4 glaucoma in Ultraviolet keratitis in. Data reviewed: vital signs, nurses notes, lab test result(s), CBC, electrolytes. Management of patient was discussed with the following: Sports Trainer: Truck Chauffeur Dr. Little. ED course: Patient warrants emergent transfer to [facility] for exam by director fundraising. Patient was accepted by director fundraising as he out of 3 out of transfer.. 10/05 21:00 Order name: CBC with Diff sp4 10/05 21:00 Order name: CMP sp4 10/05 20:23 Order name: Eye Tray; Complete Time: 20:57 sp4 10/05 20:23 Order name: Fluoresene Opth strip; Complete Time: 20:57 sp4 10/05 21:00 Order name: Saline Lock; Complete Time: 21:33 sp4 Administered Medications: 20:57 Drug: Tetracaine Ophthalmic Drops 0.5 % 1 drops Ophthalmic once {Note: administered by as6 provider .} Route: Ophthalmic; Site: right eye; 20:57 Drug: Acetaminophen-Codeine PO (300 mg-30 mg) 2 tabs PO once; RASS on ADMIN: Combtv4, as6 Very Agttd3, Agttd2, Rstlss1, AlertClm0, Drwsy-1, Lt Sdtn-2, Mod Sdtn-3, Dp Sdtn-4, UnArsble-5 Route: PO; 22:33 Follow up: Response: No adverse reaction lg3 20:57 Drug: Ibuprofen PO 800 mg PO once Route: PO; as6 22:33 Follow up: Response: No adverse reaction lg3 21:46 Drug: acetaZOLAMIDE PO 500 mg PO once Route: PO; lg3 22:32 Follow up: Response: No adverse reaction lg3 21:46 Drug: Mannitol IV 20% 60 grams 500 ml IV at calculated rate once; Administer over 30 to lg3 60 minutes Volume: 500 ml; Route: IV; Rate: calculated rate; Site: left antecubital; 22:33 Follow up: Response: No adverse reaction; IV Status: Completed infusion; IV Intake: lg3 500ml 21:46 Drug: NS 0.9% IV 1000 ml IV at 125 ml/hr continuous Route: IV; Rate: 125 ml/hr; Site: lg3 left antecubital; 22:32 Follow up: IV Status: Infusion continued upon transfer lg3 21:46 Drug: Ondansetron IVP 4 mg IVP once; over 2 minutes Route: IVP; Site: left antecubital; lg3 22:32 Follow up: Response: No adverse reaction lg3 Disposition Summary: 10/06/23 21:10 Transfer Ordered Notes: Transfer Location: [facility] sp4 Reason: Higher level of care sp4 Condition: Stable sp4 Problem: new sp4 Symptoms: have improved sp4 Accepting Physician: Truck Chauffeur [facility] Bernabe , (10/06/23 22:34) lg3 Diagnosis - Right eye acute angle-closure glaucoma, right eye painful vision loss sp4 Forms: - Medication Reconciliation Form sp4 - SBAR form sp4 Signatures: Dispatcher [employer] EDTayla Edge RN RN lg3 Carlin Rabago RN RN as6 Bryant Youngblood MD MD sp4 Corrections: (The following items were deleted from the chart) :34 21:10 Truck Chauffeur [facility] White , sp4 lg3
[2023-10-06 21:30] LABS: Absolute Basophils 0.1 K/uL (0-0.5); Absolute Eosinophils 0.3 K/uL (0-0.5); Absolute Monocytes 0.9 K/uL (0.1-1.3); Absolute Neutrophil 7.7 K/uL (1.8-8.0); Basophils % 0.6 % (0-1.3); Eosinophils % 2.6 % (0-4.4); Hematocrit 42.8 % (36.0-45.0); Lymphocytes % 18.3 % (15.3-44.8); MCH 28.7 pg (27.0-35.0); MCHC 32.7 g/dL (32.0-36.0); MCV 87.7 fL (80-100); MPV 8.6 fL (7.6-11.3); Monocytes % 8.4 % (3.3-12.3); Neutrophils % 70.1 % (41.7-73.7); Platelets 333 thou/uL (152-406); RBC Red Blood Cell Count 4.88 M/uL (3.86-4.86); Red Cell Distribution Width 15.6 % (12.1-15.2)
[2023-10-06] MEDS ORDERED: acetaZOLAMIDE 250 MG TAB ONE (21:35)
[2023-10-06] MEDS ORDERED: NA CHLORIDE 0.9% 1,000 ML ONE (21:35)
[2023-10-06] MEDS ORDERED: MANNITOL 20% 500 ML IV ONE (21:35)
[2023-10-06] MEDS ORDERED: ONDANSETRON 4 MG/2 ML VIAL ONE (21:35)
[2023-10-06 21:49] LABS: ALT/SGPT 24 U/L (13-56); Albumin 3.9 g/dL (3.4-5.0); Albumin/Globulin Ratio 0.9 (1.1-1.8); Alkaline Phosphatase 68 U/L (45-117); BUN Blood Urea Nitrogen 14 mg/dL (7-18); Bicarbonate 31 mEq/L (21-32); Bilirubin Total 0.3 mg/dL (0.2-1.0); Globulin 4.2 g/dL (2.3-3.5); Glomerular Filtration Rate 78 ml/min (=/>90); Glucose Level 108 mg/dL (74-106); Protein, Total 8.1 g/dL (6.4-8.2); Sodium Level 138 mEq/L (136-145)
[2023-10-06 21:52] LABS: AST/SGOT < 10 U/L (15-37)
[2023-10-06 22:52] VITALS: BP 137/81; TEMP 97.6; O2SAT 100
== END 2023-10-06 22:34 | disposition short-term general hospital (02) ==
LOC: ER 19:54
DX: H40.211 Acute angle-closure glaucoma, right eye (principal); H54.61 Unqualified visual loss, right eye, normal vision left eye
CPT/HCPCS: 96365; 85025; 36415; 80053; 96375; 99285; J2405; J7030